=== PATIENT | male | born 1970 | race Caucasian/White ===

== ENCOUNTER 2016-06-29 10:24 | Emergency (ER) | payer SELFPAY ==
[2016-06-29 10:39] VITALS: BP 137/88; PULSE 120; RESP 18; TEMP 99
--- NOTE | 2016-06-29 11:06 | ED ---
General Adult HPI - General Chief complaint: Extremity Injury, Upper Stated complaint: ELBOW PAIN, POSS INFECTION Time Seen by Provider: 06/29/16 10:35 Source: patient, RN notes reviewed Mode of arrival: ambulatory Limitations: no limitations - History of Present Illness Initial comments: Is a 45-year-old male who presents to the emergency department with a septic olecranon bursitis on the right elbow. Patient states that this started a couple days ago and has gotten bigger and more red and warm. Patient denies any fever. Patient denies any drainage. Patient states about for 5 days ago he fell on stairs and cut open his elbow on the carpet. Patient denies any pain in the elbow joint patient denies any wrist pain or shoulder pain patient denies any other problems at this time. - Related Data Home Medications Medication Instructions Recorded Confirmed Lisinopril [Zestril] 20 mg PO DAILY 11/12/15 11/13/15 Multivitamin [Men's Multi-Vitamin] 1 each PO DAILY 11/12/15 11/13/15 Previous Rx's Medication Instructions Recorded Dicloxacillin [Dynapen] 500 mg PO Q6H 10 Days 06/29/16 Mupirocin 2% Oint [Bactroban 2% 1 applic TOPICAL TID 7 Days 06/29/16 Oint] Allergies Allergy/AdvReac Type Severity Reaction Status Date / Time No Known Allergies Allergy Verified 11/13/15 07:57 Review of Systems ROS Statement: Those systems with pertinent positive or pertinent negative responses have been documented in the HPI. ROS Other: All systems not noted in ROS Statement are negative. Past Medical History Past Medical History: Hypertension Additional Past Medical History / Comment(s): anemia, stool test positive History of Any Multi-Drug Resistant Organisms: None Reported Additional Past Surgical History / Comment(s): wisdom teeth removed Past Anesthesia/Blood Transfusion Reactions: No Reported Reaction Past Psychological History: No Psychological Hx Reported Smoking Status: Former smoker Past Alcohol Use History: None Reported Additional Past Alcohol Use History / Comment(s): quit smoking 10 yrs. ago, smoked for 10 yrs. Past Drug Use History: None Reported - Past Family History Mother Family Medical History: No Reported History General Exam - General Exam Comments Initial Comments: GENERAL Patient is well-developed and well-nourished. Patient is in mild distress. SKIN Patient has what appears to be a septic olecranon bursitis on the right elbow. There is warm and swollen and fluctuant. Patient has NEURO The patient is alert and oriented 3 PYSCH Patient has normal interpersonal interactions. MUSCULOSKELETAL Patient has full range of motion with that right elbow. Limitations: no limitations Course Vital Signs 06/29/16 10:35 Temperature 99 F Pulse Rate 120 H Respiratory 18 Rate Blood Pressure 137/88 O2 Sat by Pulse 97 Oximetry Procedures - Incision & Drainage Consent Obtained: verbal consent Time Out Performed?: Yes Site: other (Right elbow) Anesthetic Used: lidocaine 1% I&D Cleaning Method: Betadine Needle Aspiration Performed?: Yes Irrigation Performed?: No I&D Drainage Obtained: Pus, Blood Culture Obtained?: Yes Complications: pain Patient Tolerated Procedure: well Disposition Clinical Impression: Septic olecranon bursitis Disposition: HOME SELF-CARE Condition: Good Instructions: Elbow Bursitis (ED) Prescriptions: Dicloxacillin [Dynapen] 500 mg PO Q6H 10 Days Mupirocin 2% Oint [Bactroban 2% Oint] 1 applic TOPICAL TID 7 Days Referrals: Flo Gordillo MD [Primary Care Provider] - 1-2 days Time of Disposition: 11:04
== END 2016-06-29 11:24 | disposition home or self-care (01) ==
LOC: EC 10:24
DX: M71.121 Other infective bursitis, right elbow (principal); W10.9XXA Fall (on) (from) unspecified stairs and steps, initial encounter; I10 Essential (primary) hypertension; Z87.891 Personal history of nicotine dependence
CPT/HCPCS: 23931; 87070; 87077; 87186; 87205; 99283

== ENCOUNTER → 2018-09-14 | Outpatient (CLI) | payer BC ==
--- NOTE | 2018-09-14 13:48 | CT ---
EXAMINATION TYPE: CT ankle RT wo con DATE OF EXAM: 09/14/2018 COMPARISON: NONE HISTORY: Fracture lower right tibia. Fracture lateral malleolus. Trauma injury one week ago with know n fractures. TECHNIQUE: CT right ankle is performed without contrast. FINDINGS: Overlying cast material is present. There is oblique displaced fracture through the distal tibial diaphysis with lateral angulation roughly 27 degrees of distal fracture fragment. There is rou ghly 2 to 3 cm osseous overlap or impaction anteriorly laterally with roughly 1.0 cm anterior separat ion of distal fracture fragment. There is suspicion for linear nondisplaced fracture extension into t he ankle mortise sagittal image 31 which is confirmed on axial image 71 as fracture line extends to b oth medial and lateral margin of the distal tibial epiphysis. Posterior and medial malleoli show no a dditional fracture. There is comminuted displaced fracture through the lateral malleolus with medial displacement of dist al fracture fragment by roughly 1.0 cm. There is also slight anterior separation of the fracture frag ment. Tiny ossific fragments are noted axial image 68 at site of most prominent separation. Ankle mortise symmetry is satisfactory after presumed reduction and casting. Hindfoot and midfoot articulations are otherwise maintained. Normal sinus tarsi fat is seen. Lisfranc joints are maintained. Mild to moderate diffuse subcutaneous edema is noted. IMPRESSION: Comminuted displaced fractures distal tibial diaphysis and lateral malleolus as detailed above
== END | disposition home or self-care (01) ==
LOC: RADCTMAIN 13:16
PROVIDERS: ATTEND Physician Assistant
DX: S82.251A Displaced comminuted fracture of shaft of right tibia, initial encounter for closed fracture (principal); S82.61XA Displaced fracture of lateral malleolus of right fibula, initial encounter for closed fracture

== ENCOUNTER 2018-09-21 10:48 | Day surgery (SDC) | payer BC ==
[~2018-09-21 10:48] MED LIST: DEXAMETHASONE SOD PHOSPHATE 10 MG/ML 1 ML VIAL IV ONE; LIDOCAINE 1% 20 ML VIAL (10MG/ML) FOR IV START INTRADERMA PRN; ONDANSETRON 4 MG/2 ML VIAL IVP ONE; ceFAZolin IN SWFI 2 GM/20 ML SYRINGE IVP ONE; fentaNYL (PF) 50 MCG/ML 2 ML AMP IV PRN
[2018-09-21] MEDS: LACTATED RINGERS 1,000 ML IV SCH (11:16)
[2018-09-21 11:34] LABS: Basophils # (A) 0.1 k/uL (0-0.2); Basophils % (A) 1 %; Eosinophils # (A) 0.4 k/uL (0-0.7); Eosinophils % (A) 4 %; HCT 43.7 % (39.0-53.0); Lymphocytes # (A) 1.6 k/uL (1.0-4.8); Lymphocytes % (A) 15 %; MCH 31.5 pg (25.0-35.0); MCV 98.5 fL (80.0-100.0); Mean Platelet Volume 6.5; Monocytes # (A) 0.8 k/uL (0-1.0); Monocytes % (A) 8 %; Neutrophils # (A) 7.2 k/uL (1.3-7.7); Neutrophils % (A) 70 %; Platelet Count 673 k/uL (150-450); RBC 4.43 m/uL (4.30-5.90); RDW 12.5 % (11.5-15.5); WBC 10.2 k/uL (3.8-10.6)
[2018-09-21] MEDS ORDERED: MIDAZOLAM (PF) 2 MG/2 ML VIAL IVP ONE (11:42)
[2018-09-21] MEDS ORDERED: MIDAZOLAM 2 MG/2 ML VIAL ONE (13:02)
[2018-09-21] MEDS ORDERED: DEXAMETHASONE SOD PHOS (MDV) 100 MG/10 ML VIAL ONE (13:02)
[2018-09-21] MEDS ORDERED: SUCCINYLCHOLINE CHLORIDE 100 MG/5 ML SYR IV ONE (13:02)
[2018-09-21] MEDS ORDERED: ROCURONIUM BROMIDE 10 MG/ML 10 ML VIAL IV ONE (13:02)
[2018-09-21] MEDS ORDERED: NEOSTIGMINE 1 MG/ML 10 ML VIAL ONE (13:02)
[2018-09-21] MEDS ORDERED: PROPOFOL 10 MG/ML 20 ML VIAL IV ONE (13:02)
[2018-09-21] MEDS ORDERED: ePHEDrine SULFATE/0.9% NACL/PF 50 MG/5 ML SYRINGE IV ONE (13:02)
[2018-09-21] MEDS ORDERED: fentaNYL (PF) 50 MCG/ML 2 ML AMP ONE (13:02)
[2018-09-21] MEDS ORDERED: ROPIVACAINE 5 MG/ML 30 ML VIAL ONE (13:02)
[2018-09-21] MEDS ORDERED: GLYCOPYRROLATE 0.2 MG/ML 2 ML VIAL ONE (13:02)
[2018-09-21] MEDS ORDERED: LACTATED RINGERS 1,000 ML IV ONE ×2 (13:30→15:00)
[2018-09-21] MEDS ORDERED: HYDROmorphone 1 MG/ML 1 ML SYRINGE IVP PRN (17:29)
[2018-09-21] MEDS ORDERED: HYDROmorphone 0.5 MG/0.5 ML SYRINGE IVP PRN ×2 (17:29)
[2018-09-21] MEDS ORDERED: hydrOXYzine PAMOATE 25 MG CAP PO PRN (17:29)
[2018-09-21] MEDS ORDERED: HYDROcodone/APAP 5-325MG 1 EACH TAB PO PRN ×2 (17:29)
[2018-09-21] MEDS ORDERED: SENNOSIDES-DOCUSATE SODIUM 1 EACH TAB PO PRN (17:29)
[2018-09-21] MEDS ORDERED: ONDANSETRON 4 MG/2 ML VIAL IVP PRN (17:29)
--- NOTE | 2018-09-21 17:53 | P.OP ---
Date of Procedure: 09/21/18 Preoperative Diagnosis: 1. Right distal third tibia fracture 2. Right comminuted lateral malleolus fracture 3. Right posterior malleolus fracture, nondisplaced Postoperative Diagnosis: Same Procedure(s) Performed: 1. Open reduction and internal fixation right distal tibia fracture through an anterolateral approach 2. Open reduction internal fixation right posterior malleolus 3. Open reduction internal fixation right lateral malleolus 4. Application of short-leg splint by physician Anesthesia: CELY, regional Surgeon: Toby Perkins [employer] #1: Flako Vasquez Estimated Blood Loss (ml): 100 IV fluids (ml): 1,200 Pathology: none sent Condition: stable Disposition: PACU Indications for Procedure: The patient is a very pleasant 47-year-old male who sustained an isolated injury to his right leg week and a half ago. The patient is not sure what he did saying either hurt his leg while moving a safe or playing football. He states that after he removed his boot he had significant pain was unable to walk. He w ent to the ER at [facility] where x-rays showed a displaced tibia fracture. He was sent to our office and seen by Mikey Flores who placed him in a better splint, ordered a computed tomography scan, and referred him to my office. I met with the patient and his to discuss treatment. We discussed that it was extremely unusual for him to not remember how he broke his tibia and fibula. His x-ray and CT scans showed displaced fractures but no evidence of a pathologic lesion. We discussed the need for operative fixation. Due to the distal extent of the fracture I recommended open reduction and internal fixation with anterolateral plating versus a nail which would have minimal fixation distal to the fracture. We also discussed fixing the fibula and posterior malleolus. We discussed the potential risks and complications of surgery including but not limited to risk of anesthesia, superficial infection, deep infection, delayed wound healing, superficial wound necrosis, damage to local blood vessels or nerves, nonunion of the fracture site, malunion of the fracture site, systematic hardware, posterior Mckenna arthritis, DVT, PE, and inability to regain preinjury level of function, dissatisfaction with surgery, and possibly loss of life or limb. The patient and his understand all these are the most common complications other less common complications are possible. They provided their verbal and written consent to go forward with surgery. Description of Procedure: The patient was identified in preoperative holding and I reviewed the consent form with the patient and his . All of their questions were answered. The correct right leg was marked with my initials. I removed the splint to inspect the soft tissue. There was wrinkling of the skin. A popliteal and saphenous nerve block was placed by anesthesia. The patient was then brought back to the operating room. He was positioned on the OR table where a general anesthetic and preoperative antibiotics were given. A tourniquet was applied to the proximal aspect of the right leg. A bump was placed under the right buttock internally rotating the leg. The left leg secured to the table with foam and tape. A bone foam ramp was placed under the right leg to facilitate imaging. The right leg was then prepped and draped in the standard sterile fashion. Prior to starting surgery timeout was performed identifying the correct patient, operative extremity, and procedure. The patient's leg was then elevated, exsanguinated with an Esmarch bandage, and the tourniquet was inflated to 250 mmHg. I began by outlining incisions for an anterolateral Bohler incision to the distal tibia and a posterior lateral approach to the fibula. I made sure that there was at least 5 cm between both incisions to facilitate closure. I began by exposing the distal fibula through the posterior lateral approach. Skin incision was made with a scalpel and dissection was carried down carefully taking care to not undermine the skin edges. The fascia over the peroneal muscles was sharply incised in line with the skin incision and dissection was carried anteriorly to the peroneal muscles. The fibula was identified and the periosteum sharply elevated with a scalpel. The fracture was identified. There was a large butterfly fragment in addition to the primary oblique fracture line distally. The fracture ends sharply debrided and then carefully reduced by having an front office medical assistant pulled longitudinal traction while I keyed the fracture fragments in place and held them reduced with a [id number] reduction clamp. 2 nonlocking 2.0 mm screws were placed across the butterfly fragment into the proximal shaft holding the reduction nicely. A precontoured lateral distal fibular locking plate was placed over the lateral malleolus. A nonlocking 3.5 mm screw was placed just proximal to the fracture bringing the plate down to the bone. A second nonlocking 3.5 motor screws placed in the most proximal hole of the plate taking care to make sure the plate was centered on the fibula. Distally a nonlocking 2.7 mm screw was placed and one of the locking cluster holes to bring the plate down to bone. I then placed an additional 3 locking 2.7 mm screws in the distal fragment. The nonlocking 2.7 mm screw was exchanged for a final 2.7 mm locking screw. X-rays showed the fibula appeared to be out to length. Attention was then turned to the tibia. Skin incision was made over the previously made anterolateral marking. Dissection was carried down carefully to the subcutaneous tissue. A branch the superficial peroneal nerve was identified and carefully retracted. The extensor retinaculum was incised longitudinally in line with the skin incision. The anterior compartment tendons were carefully retracted off the distal tibia. Attention was then turned to reducing the tibia fracture. Stab incisions were made medially. Using a combination of longitudinal traction and rotation the fracture was aligned and then held with a [id number] reduction clamp. A 2.00 m K wire was placed obliquely across the fracture from medial to lateral holding the reduction. Fluoroscopy was brought in to verify that the tibia was reduced in both planes. A medium Wen elevator was then used to create a path along the anterolateral face of the tibia for the anterolateral plate. An anterolateral distal tibia plate was then slid along the anterolateral face of the tibia. It was pinned in place distally and proximally. I then placed 2 nonlocking 3.5 motor screws distally to bring the plate down to bone. I placed an additional 2 locking 3.5 mm screws and an oblique screw. Attention was then turned proximally. Stab incisions were made and 3 nonlocking 3.5 mm screws were placed percutaneously through the plate and into the tibia training the plate nicely down to bone. Final fluoroscopic images were taken showing anatomic reduction of the ankle mortise, a reasonably well reduced to be a fracture, and except oh position of all the hardware. All wounds were thoroughly irrigated. The deep fascial layer and retinaculum was closed with interrupted 0 Vicryl. The deep subcu was reapproximated using 2-0 Vicryl. The skin was closed using 3-0 nylon Algor modification of the Donati stitch. Brown quarter and stretchy Steri-Strips were placed. A sterile dressing consisting of Betadine soaked Adaptic, 4 x 4 and sterile web roll was placed. The drapes were taken down. A well-padded bulky Helton splint was placed with the ankle neutral. The patient was awoken from his anesthetic, transferred to a gurney, and brought to PACU in the procedure well. Charlene Vasquez PA-C was required as a skilled front office medical assistant for patient positioning, surgical exposure, retraction, reduction of hardware, placement of hardware, closure of wound, and application of splint. Plan: The patient is going to be admitted overnight for pain control, IV antibiotics, and a medical consult. His remain strictly nonweightbearing on his operative leg. We'll place consult for physical therapy. He can discharge home when his pain is controlled and he passes therapy.
[2018-09-21] MEDS ORDERED: NALOXONE 0.4 MG/ML 1 ML VIAL IV PRN (18:00)
[2018-09-21] MEDS: HYDROmorphone 0.5 MG/0.5 ML SYRINGE IVP PRN ×2 (18:10→18:25)
[2018-09-21 18:31] LABS: Basophils % (A) 0 %; Eosinophils % (A) 0 %; HCT 40.1 % (39.0-53.0); HGB 12.7 gm/dL (13.0-17.5); Lymphocytes # (A) 0.5 k/uL (1.0-4.8); Lymphocytes % (A) 5 %; MCH 31.4 pg (25.0-35.0); MCHC 31.7 g/dL (31.0-37.0); MCV 99.3 fL (80.0-100.0); Mean Platelet Volume 7.1; Monocytes # (A) 0.2 k/uL (0-1.0); Monocytes % (A) 2 %; Neutrophils # (A) 9.5 k/uL (1.3-7.7); Neutrophils % (A) 93 %; Platelet Count 608 k/uL (150-450); RBC 4.04 m/uL (4.30-5.90); WBC 10.2 k/uL (3.8-10.6)
[2018-09-21] MEDS: HYDROcodone/APAP 10-325MG 1 EACH TAB PO PRN ×2 (19:20→23:50)
[2018-09-21 19:30] VITALS: BMI 23.4
[2018-09-21] MEDS: ceFAZolin IN SWFI 2 GM/20 ML SYRINGE IVP SCH (23:51)
[2018-09-22] MEDS: LACTATED RINGERS 1,000 ML IV SCH ×3 (04:37→04:40)
[2018-09-22] MEDS: HYDROcodone/APAP 10-325MG 1 EACH TAB PO PRN ×2 (04:37→09:41)
[2018-09-22 07:51] VITALS: BP 101/65; PULSE 91; RESP 18; TEMP 98.3
--- NOTE | 2018-09-22 08:59 | P.DS ---
Providers Expected date of discharge: 09/22/18 Attending physician: Toby Perkins Consults: 09/21/18 17:29 Consult Physician Routine Consulting Provider: Flo Gordillo Consult Reason/Comments: medical management Do you want consulting provider notified?: Yes [facility] Course: This is a 47-year-old male who sustained an injury to the right leg approximate ly 10 days ago, but did not recall how this happened. X-rays from the emergency room at [facility] revealed a displaced fracture of the right tibia. Patient followed up with Dr. Perkins as an outpatient and underwent CTscan which showed displaced fractures of the right tibia and fibula. After discussion and consideration patient elects to proceed with ORIF of the right distal tibia, right posterior malleolus and right lateral malleolus. Patient is seen preoperatively by Dr. Perkins. Patient is admitted to [facility] on 09/21/2018 for ORIF of the right distal tibia, right posterior malleolus and right lateral malleolus. The procedures performed without complication or sequelae. The patient is doing well postoperatively. Labs and vital signs are stable on day of discharge. On day of discharge patient's splint is clean, dry and intact. Patient is able to wiggle the toes of the right foot. Capillary refill is normal at less than 2 seconds. There is no drainage noted at this time. Neurovascular status to the right lower extremity is intact. Patient is discharged home in good condition. Please see med rec for accurate list of home medications. Plan - Discharge Summary Discharge Rx Participant: No New Discharge Prescriptions: New Aspirin 325 mg PO DAILY #14 tab Docusate [Colace] 100 mg PO BID #60 capsule HYDROcodone/APAP 10-325MG [[place] 10-325] 1 tab PO Q4-6H PRN 7 Days #40 tab PRN Reason: Pain No Action Ibuprofen [Motrin] 200 - 400 mg PO Q6HR PRN PRN Reason: PAIN/FEVER HYDROcodone/APAP 10-325MG [[place] 10-325] 1 tab PO Q4H PRN PRN Reason: Pain Lisinopril-Hctz 20-25 mg [Zestoretic 20-25] 1 tab PO QAM José/D3/Mag11/Zinc/Roll Handler/[place]ec[place]/Bor [Caltrate 600+D Plus Tablet] 1 tab PO DAILY Discharge Medication List Ibuprofen [Motrin] 200 - 400 mg PO Q6HR PRN 06/29/16 [History] José/D3/Mag11/Zinc/Roll Handler/[place]/Bor [Caltrate 600+D Plus Tablet] 1 tab PO DAILY 09/19/18 [History] HYDROcodone/APAP 10-325MG [[place] 10-325] 1 tab PO Q4H PRN 09/19/18 [History] Lisinopril-Hctz 20-25 mg [Zestoretic 20-25] 1 tab PO QAM 09/19/18 [History] Aspirin 325 mg PO DAILY #14 tab 09/21/18 [Rx] Docusate [Colace] 100 mg PO BID #60 capsule 09/21/18 [Rx] HYDROcodone/APAP 10-325MG [[place] 10-325] 1 tab PO Q4-6H PRN 7 Days #40 tab 09/21/18 [Rx] Follow up Appointment(s)/Referral(s): Toby Perkins MD [Medical Doctor] - 2 Weeks Activity/Diet/Wound Care/Special Instructions: -Strict non-weight bearing on your operative leg. Do not remove your splint; Keep splint clean, dry, and intact -Use crutches, knee scooter, or a walker to ambulate after surgery. -Elevate and ice operative leg to help reduce swelling and control pain. -Take pain medications as prescribed. Take Colace as a stool softener. Take aspirin as prescribed for blood clot prevention. -Follow-up appointment with Dr. Perkins in the office in 2 weeks. -Call the office with any questions or concerns, Discharge Disposition: HOME SELF-CARE
[2018-09-22] MEDS ORDERED: ENOXAPARIN 40 MG/0.4 ML SYRINGE SQ SCH (09:00)
[2018-09-22] MEDS: ceFAZolin IN SWFI 2 GM/20 ML SYRINGE IVP SCH (11:05)
--- NOTE | 2018-09-22 11:52 | P.ONQ ---
Anesthesiology Proc Note - PNB - Peripheral Nerve Block Performed Right Popliteal Single Time Out Performed: Yes Procedure Start Time: 11:42 Procedure Stop Time: 11:48 Indication: Acute Post-Operative Pain, Requested by physician Sedation Type: Sedate with meaningful contact maintained Preparation: Sterile Prep Position: Supine Needle Size: 50mm (2") Needle Gauge: 21 Technique: Ultrasound (ropi .5% 30cc plus dexamethasone 4mg)
--- NOTE | 2018-09-22 13:00 | XR ---
EXAMINATION TYPE: XR ankle complete RT, FL guidance operating room DATE OF EXAM: 09/21/2018 CLINICAL HISTORY: Right ankle open reduction internal fixation TECHNIQUE: Fluoroscopy. COMPARISON: None. FINDINGS: Fluoroscopic guidance was provided during procedure performed by Dr. Perkins. A total of 8.57 seconds seconds of fluoroscopic time was utilized during the procedure and 6 spot images was ac quired during a right ankle open reduction internal fixation. IMPRESSION: As Above.
--- NOTE | 2018-09-22 13:40 | P.PN ---
Progress Note - Text Patient was discharged less then 24 hour from consult time No active medical problems He was not seen by our service during this admission Cancel consult No billing
== END 2018-09-22 12:18 | disposition home or self-care (01) ==
LOC: OR 10:48 → 4SSUR 18:06 → OR 09-22 12:18
PROVIDERS: ATTEND Orthopaedic Surgery
DX: S82.391A Other fracture of lower end of right tibia, initial encounter for closed fracture (principal); S82.844A Nondisplaced bimalleolar fracture of right lower leg, initial encounter for closed fracture; I10 Essential (primary) hypertension; Z79.1 Long term (current) use of non-steroidal anti-inflammatories (NSAID)
CPT/HCPCS: 97161; 64450; 84132; 85025; 82306; 73610; 27827; 27814; C1713; J2250 ×2; J1100 ×2; J2710; J2405; J1650; J3010; J2795; J0330; J2704; J1170; J0690 ×2

== ENCOUNTER 2024-08-06 17:00 | Inpatient (IN) | payer BC ==
[2024-08-06 18:19] LABS: Basophils % (A) 0 %; Eosinophils # (A) 0.2 k/uL (0-0.7); Eosinophils % (A) 1 %; HCT 41.7 % (39.0-53.0); HGB 13.4 gm/dL (13.0-17.5); Lymphocytes # (A) 1.1 k/uL (1.0-4.8); Lymphocytes % (A) 5 %; MCH 32.1 pg (25.0-35.0); MCV 100.1 fL (80.0-100.0); Macrocytosis Slight; Mean Platelet Volume 7.1; Monocytes # (A) 0.7 k/uL (0-1.0); Monocytes % (A) 3 %; Neutrophils # (A) 19.8 k/uL (1.3-7.7); Neutrophils % (A) 90 %; Platelet Count 574 k/uL (150-450); RBC 4.17 m/uL (4.30-5.90); RDW 14.1 % (11.5-15.5)
[2024-08-06 18:30] LABS: ALT 11 U/L (4-49); AST 21 U/L (17-59); African American GFR (CKD) >90 (>60 ml/min/1.73 sqM); Albumin 3.8 g/dL (3.5-5.0); Alkaline Phosphatase 81 U/L (38-126); Amylase 33 U/L (30-110); Anion Gap 10 mmol/L; Blood Urea Nitrogen 11 mg/dL (9-20); Calcium 9.3 mg/dL (8.4-10.2); Carbon Dioxide 23 mmol/L (22-30); Chloride 98 mmol/L (98-107); Glucose 118 mg/dL (74-99); Lipase 50 U/L (23-300); Non-African American GFR(CKD) >90 (>60 ml/min/1.73 sqM); Potassium 4.6 mmol/L (3.5-5.1); Sodium 131 mmol/L (137-145); Total Bilirubin 0.8 mg/dL (0.2-1.3); Total Protein 7.4 g/dL (6.3-8.2)
--- NOTE | 2024-08-06 18:33 | ED ---
General Adult HPI - General Chief complaint: Abdominal Pain Stated complaint: Abd pain,Fever Time Seen by Provider: 08/06/24 18:16 Source: patient, RN notes reviewed Mode of arrival: ambulatory Limitations: no limitations - History of Present Illness Initial comments: Patient is a 53-year-old male present to the emergency department with concerns with abdominal pain. Onset of symptoms was 4 days ago. Symptoms seem to improve and then got worse last night. Patient has had some intermittent fevers. Patient has had some nausea and mild constipation. No dysuria. No vomiting. No history of similar symptoms previously. Discomfort is mostly lower abdomen. Discomfort started more on the left however is more on the right lower. - Related Data Home Medications Medication Instructions Recorded Confirmed Lisinopril-Hctz 20-25 mg 1 tab PO DAILY 09/19/18 08/06/24 [Zestoretic 20-25] Ibuprofen [Motrin] 800 mg PO TID PRN 08/06/24 08/06/24 Allergies Allergy/AdvReac Type Severity Reaction Status Date / Time No Known Allergies Allergy Verified 08/06/24 19:52 Review of Systems ROS Statement: Those systems with pertinent positive or pertinent negative responses have been documented in the HPI. ROS Other: All systems not noted in ROS Statement are negative. Constitutional: Reports: as per HPI, fever Eyes: Denies: eye pain ENT: Denies: ear pain Respiratory: Denies: dyspnea Cardiovascular: Denies: chest pain Endocrine: Denies: fatigue Gastrointestinal: Reports: as per HPI, abdominal pain, nausea Genitourinary: Denies: urgency, dysuria Musculoskeletal: Denies: back pain Past Medical History Past Medical History: Hypertension Additional Past Medical History / Comment(s): fx rt ankle,hx anemia,colon polyps History of Any Multi-Drug Resistant Organisms: None Reported Additional Past Surgical History / Comment(s): wisdom teeth removed,dental work Past Anesthesia/Blood Transfusion Reactions: No Reported Reaction Additional Past Anesthesia/Blood Transfusion Reaction / Comment(s): never has had general anesthesia or blood transfusion Past Psychological History: No Psychological Hx Reported Smoking Status: Former smoker Past Alcohol Use History: None Reported Past Drug Use History: None Reported - Past Family History Mother Family Medical History: No Reported History General Exam Limitations: no limitations General appearance: alert, in no apparent distress Head exam: Present: normocephalic Eye exam: Present: normal appearance Neck exam: Present: normal inspection Respiratory exam: Present: normal lung sounds bilaterally Cardiovascular Exam: Present: tachycardia GI/Abdominal exam: Present: soft, tenderness (Lower abdomen, moderate), guarding, normal bowel sounds. Absent: distended, rebound, rigid, pulsatile mass Extremities exam: Present: normal inspection Neurological exam: Present: alert Psychiatric exam: Present: normal affect, normal mood Skin exam: Present: normal color Course Vital Signs 08/06/24 08/06/24 08/06/24 17:12 18:15 19:33 Temperature 100 F H 100.3 F H 100.0 F H Pulse Rate 133 H 120 H 105 H Respiratory 20 18 20 Rate Blood Pressure 120/84 130/85 115/81 O2 Sat by Pulse 99 99 96 Oximetry Medical Decision Making - Medical Decision Making Concern for potential sepsis at 1830. Blood culture, lactic acid and IV antibiotics have all been ordered. IV fluids ordered. Was pt. sent in by a medical professional or institution (, PA, SENIOR PRODUCER, urgent care, hospital, or longterm...) When possible be specific @ -No Did you speak to anyone other than the patient for history (EMS, parent, family, police, friend...)? What history was obtained from this source @ -No Did you review nursing and triage notes (agree or disagree)? Why? @ -I reviewed and agree with nursing and triage notes Were old charts reviewed (outside hosp., previous admission, EMS record, old EKG, old radiological studies, urgent care reports/EKG's, longterm records)? Report findings @ -No old charts were reviewed Differential Diagnosis (chest pain, altered mental status, abdominal pain women, abdominal pain men, vaginal bleeding, weakness, fever, dyspnea, syncope, headache, dizziness, GI bleed, back pain, seizure, CVA, palpatations, mental health, musculoskeletal)? @ -Differential Abdominal Pain Men: Appendicitis, cholecystitis, diverticulosis, ischemic bowel, pancreatitis, hepatitis, UTI, gastroenteritis, AAA, incarcerated hernia, bowel obstruction, constipation, inflammatory bowel, hepatitis, peptic ulcer disease, splenic infarction, perforated viscus, testicular torsion, this is not meant to be an all-inclusive list EKG interpreted by me (3pts min.). @ -As above X-rays interpreted by me (1pt min.). @ -None done CT interpreted by me (1pt min.). @ -CT scan with evidence of colitis with perforation and abscess. U/S interpreted by me (1pt. min.). @ -None done What testing was considered but not performed or refused? (CT, X-rays, U/S, labs)? Why? @ -None What meds were considered but not given or refused? Why? @ -None Did you discuss the management of the patient with other professionals (professionals i.e. Dr., PA, SENIOR PRODUCER, lab, RT, psych nurse, social services director, wool supplier, teacher, building drafting officer, continuous pillowcase cutter)? Give summary @ -Case was discussed with Dr. Mahajan who did come evaluate patient will take to the OR Was smoking cessation discussed for >3mins.? @ -No Was critical care preformed (if so, how long)? @ -No Were there social determinants of health that impacted care today? How? (Homelessness, low income, unemployed, alcoholism, drug addiction, transportation, low edu. Level, literacy, decrease access to med. care, care home, rehab)? @ -No Was there de-escalation of care discussed even if they declined (Discuss DNR or withdrawal of care, Hospice)? DNR status @ -No What co-morbidities impacted this encounter? (DM, HTN, Smoking, COPD, CAD, Cancer, CVA, ARF, Chemo, Hep., AIDS, mental health diagnosis, sleep apnea, morbid obesity)? @ -None Was patient admitted / discharged? Hospital course, mention meds given and route, prescriptions, significant lab abnormalities, going to OR and other pertinent info. @ -Patient presents with abdominal pain, high white count and fever. CT scan concerning for perforation. Patient to go to the OR. Patient reevaluated. Patient and family updated. Undiagnosed new problem with uncertain prognosis? @ -No Drug Therapy requiring intensive monitoring for toxicity (Heparin, Nitro, Insulin, Cardizem)? @ -No Were any procedures done? @ -No Diagnosis/symptom? @ -Perforated colon Acute, or Chronic, or Acute on Chronic? @ -Acute Uncomplicated (without systemic symptoms) or Complicated (systemic symptoms)? @ -Default Side effects of treatment? @ -No Exacerbation, Progression, or Severe Exacerbation? @ -No Poses a threat to life or bodily function? How? (Chest pain, [place], [place], pneumonia, PE, COPD, DKA, ARF, appy, cholecystitis, CVA, Diverticulitis, Homicidal, Suicidal, threat to staff... and all critical care pts) @ -Threat to bowel function - Lab Data Result diagrams: 08/06/24 18:05 08/06/24 18:05 Lab Results 08/06/24 08/06/24 08/06/24 Range/Units 18:05 18:05 18:05 WBC 22.0 H (3.8-10.6) k/uL RBC 4.17 L (4.30-5.90) m/uL Hgb 13.4 (13.0-17.5) gm/dL Hct 41.7 (39.0-53.0) % MCV 100.1 H (80.0-100.0) fL MCH 32.1 (25.0-35.0) pg MCHC 32.0 (31.0-37.0) g/dL RDW 14.1 (11.5-15.5) % Plt Count 574 H (150-450) k/uL MPV 7.1 Neutrophils % 90 % Lymphocytes % 5 % Monocytes % 3 % Eosinophils % 1 % Basophils % 0 % Neutrophils # 19.8 H (1.3-7.7) k/uL Lymphocytes # 1.1 (1.0-4.8) k/uL Monocytes # 0.7 (0-1.0) k/uL Eosinophils # 0.2 (0-0.7) k/uL Basophils # 0.0 (0-0.2) k/uL Macrocytosis Slight APTT (22.0-30.0) sec Sodium 131 L (137-145) mmol/L Potassium 4.6 (3.5-5.1) mmol/L Chloride 98 (98-107) mmol/L Carbon Dioxide 23 (22-30) mmol/L Anion Gap 10 mmol/L BUN 11 (9-20) mg/dL Creatinine 0.76 (0.66-1.25) mg/dL Est GFR (CKD-EPI)AfAm >90 (>60 ml/min/1.73 sqM) Est GFR (CKD-EPI)NonAf >90 (>60 ml/min/1.73 sqM) Glucose 118 H (74-99) mg/dL Plasma Lactic Acid Eliceo 1.4 (0.7-2.0) mmol/L Calcium 9.3 (8.4-10.2) mg/dL Total Bilirubin 0.8 (0.2-1.3) mg/dL AST 21 (17-59) U/L ALT 11 (4-49) U/L Alkaline Phosphatase 81 (38-126) U/L Total Protein 7.4 (6.3-8.2) g/dL Albumin 3.8 (3.5-5.0) g/dL Amylase 33 (30-110) U/L Lipase 50 (23-300) U/L 08/06/24 Range/Units 18:05 WBC (3.8-10.6) k/uL RBC (4.30-5.90) m/uL Hgb (13.0-17.5) gm/dL Hct (39.0-53.0) % MCV (80.0-100.0) fL MCH (25.0-35.0) pg MCHC (31.0-37.0) g/dL RDW (11.5-15.5) % Plt Count (150-450) k/uL MPV Neutrophils % % Lymphocytes % % Monocytes % % Eosinophils % % Basophils % % Neutrophils # (1.3-7.7) k/uL Lymphocytes # (1.0-4.8) k/uL Monocytes # (0-1.0) k/uL Eosinophils # (0-0.7) k/uL Basophils # (0-0.2) k/uL Macrocytosis APTT 27.2 (22.0-30.0) sec Sodium (137-145) mmol/L Potassium (3.5-5.1) mmol/L Chloride (98-107) mmol/L Carbon Dioxide (22-30) mmol/L Anion Gap mmol/L BUN (9-20) mg/dL Creatinine (0.66-1.25) mg/dL Est GFR (CKD-EPI)AfAm (>60 ml/min/1.73 sqM) Est GFR (CKD-EPI)NonAf (>60 ml/min/1.73 sqM) Glucose (74-99) mg/dL Plasma Lactic Acid Eliceo (0.7-2.0) mmol/L Calcium (8.4-10.2) mg/dL Total Bilirubin (0.2-1.3) mg/dL AST (17-59) U/L ALT (4-49) U/L Alkaline Phosphatase (38-126) U/L Total Protein (6.3-8.2) g/dL Albumin (3.5-5.0) g/dL Amylase (30-110) U/L Lipase (23-300) U/L Disposition Clinical Impression: Perforated sigmoid colon Disposition: ADMITTED IP TO THIS HOSP Condition: Serious Is patient prescribed a controlled substance at d/c from ED?: No Referrals: Robby Dave MD [Primary Care Provider] - 1-2 days Time of Disposition: 20:19
[2024-08-06] MEDS: MORPHINE SULFATE 4 MG/ML SYRINGE IVP STA (18:40)
[2024-08-06] MEDS: PIPERACILLIN-TAZOBACTAM 3.375 GM in SODIUM CHLORIDE 0.9% 100 ML IVPB SCH (18:43)
[2024-08-06] MEDS: LACTATED RINGERS 1,000 ML IV STA (18:53)
--- NOTE | 2024-08-06 20:00 | CT ---
EXAMINATION TYPE: CT abdomen pelvis w con DATE OF EXAM: 08/06/2024 7:13 PM COMPARISON: None CLINICAL INDICATION: Male, 53 years old with history of abp; pt c,o of bilat lower abd pain onset mon day, denies any n/v, reports fevers TECHNIQUE: Axial CT abdomen pelvis w con;Sagittal and coronal reformats were created on a separate w orkstation. Contrast used:100ml mL of Isovue 300 with IV Contrast, (none if empty) Oral contrast used: without Oral Contrast (none if empty) CT DLP: 610.1 mGycm, Automated exposure control for dose reduction was used. FINDINGS: LOWER CHEST: Unremarkable ABDOMEN LIVER: Unremarkable GALLBLADDER AND BILE DUCTS: Unremarkable. PANCREAS: Unremarkable. SPLEEN: Unremarkable. ADRENAL GLANDS: Unremarkable. KIDNEYS AND URETERS: No evidence of hydronephrosis or renal calculus. The ureters are unremarkable. PELVIS BLADDER: Mild circumferential wall thickening the bladder measuring up to 10 mm. The bladder extends superiorly towards the area of wall thickening of the colon. REPRODUCTIVE: Unremarkable. ABDOMEN & PELVIS STOMACH AND BOWEL: No evidence of bowel obstruction. Appendix is dilated up to 10 mm. Scattered colon ic diverticula. Masslike area of wall thickening of the sigmoid colon series 202 image 39 wall measur ing up to 21 mm. The urinary bladder extends up towards this region. There is free fluid/abscess form ation measuring 63 x 24 mm in the left lower quadrant series 201 image 60. Few scattered colonic dive rticula. PERITONEUM/RETROPERITONEUM: No evidence of pneumoperitoneum. Trace free fluid throughout the pelvis. VASCULATURE: Moderate atherosclerotic calcifications are present throughout the abdominal aorta and i ts branches. No evidence of aortic aneurysm. MUSCULOSKELETAL: No acute osseous abnormalities. Moderate disc degeneration changes are present throu ghout the thoracolumbar spine. LYMPH NODES: No gross evidence for lymphadenopathy. SOFT TISSUE/ABDOMINAL WALL: Unremarkable IMPRESSION: 1. Masslike area of wall thickening of the sigmoid colon with free peritoneal fluid compatible with abscess. Findings could represent perforated mass versus perforated colitis with abscess formation. F urther workup and surgical consultation recommended. 2. Circumferential wall thickening up to 10 mm. Correlate with urinalysis for cystitis partially sec ondary to 3. Trace ascites in the abdomen 4. The appendix is dilated with mild inflammation changes correlate for appendicitis. Findings communicated to Baldomero Helton on 08/06/2024 7:[address] Alfredito Montelongo. [facility], , 08/06/2024 7:57 PM
[2024-08-06] MEDS: ACETAMINOPHEN IV (For NPO) 750 MG in EMPTY BAG 1 BAG IVPB STA (20:03)
[2024-08-06] MEDS ORDERED: NALOXONE 0.4 MG/ML 1 ML VIAL IV PRN (20:20)
[2024-08-06] MEDS ORDERED: MORPHINE SULFATE 4 MG/ML SYRINGE IV PRN (20:20)
[2024-08-06] MEDS ORDERED: ONDANSETRON 4 MG/2 ML VIAL IVP PRN (20:20)
--- NOTE | 2024-08-06 20:45 | P.GSHP ---
History of Present Illness H&P Date: 08/06/24 Patient is a 53-year-old male presenting to the [facility] emergency department with abdominal pain. Onset of symptoms was 4 days ago. Symptoms seem to improved and then got worse last night. Patient has had some intermittent fevers. Patient has had some nausea and mild constipation. No dysuria. No vomiting. No history of similar symptoms previously. Discomfort is mostly lower abdomen. He denies surgical history. He had a colonoscopy 8 years ago for rectal bleeding and had 3 polyps removed per the patient. He has not had a colonoscopy since that time. CT-AP shows a perforated sigmoid colon with associated abscess and free fluid. ROS Statement: Those systems with pertinent positive or pertinent negative responses have been documented in the HPI. ROS Other: All systems not noted in ROS Statement are negative. Constitutional: Reports: as per HPI, fever Eyes: Denies: eye pain ENT: Denies: ear pain Respiratory: Denies: dyspnea Cardiovascular: Denies: chest pain Endocrine: Denies: fatigue Gastrointestinal: Reports: as per HPI, abdominal pain, nausea Genitourinary: Denies: urgency, dysuria Musculoskeletal: Denies: back pain Past Medical History Past Medical History: Hypertension Additional Past Medical History / Comment(s): fx rt ankle,hx anemia,colon polyps History of Any Multi-Drug Resistant Organisms: None Reported Additional Past Surgical History / Comment(s): wisdom teeth removed,dental work Past Anesthesia/Blood Transfusion Reactions: No Reported Reaction Additional Past Anesthesia/Blood Transfusion Reaction / Comment(s): never has had general anesthesia or blood transfusion Past Psychological History: No Psychological Hx Reported Smoking Status: Former smoker Past Alcohol Use History: None Reported Past Drug Use History: None Reported - Past Family History Mother Family Medical History: No Reported History General Exam Limitations: no limitations General appearance: alert, in no apparent distress Head exam: Present: normocephalic Eye exam: Present: normal appearance Neck exam: Present: normal inspection Respiratory exam: Present: normal lung sounds bilaterally Cardiovascular Exam: Present: tachycardia GI/Abdominal exam: Present: soft, tenderness (Lower abdomen, moderate), guarding, normal bowel sounds. Absent: distended, rebound, rigid, pulsatile mass Extremities exam: Present: normal inspection Neurological exam: Present: alert Psychiatric exam: Present: normal affect, normal mood Skin exam: Present: normal color 53 year old male with perforated sigmoid colon with associated abscess and free fluid -OR for Exploratory Laparotomy -Zosyn -IV fluids -NPO -Medicine consult for medical management [place] Wood [facility] [phone] Past Medical History Past Medical History: Hypertension Additional Past Medical History / Comment(s): fx rt ankle,hx anemia,colon polyps History of Any Multi-Drug Resistant Organisms: None Reported Additional Past Surgical History / Comment(s): wisdom teeth removed,dental work Past Anesthesia/Blood Transfusion Reactions: No Reported Reaction Additional Past Anesthesia/Blood Transfusion Reaction / Comment(s): never has had general anesthesia or blood transfusion Past Psychological History: No Psychological Hx Reported Smoking Status: Former smoker Past Alcohol Use History: None Reported Past Drug Use History: None Reported - Past Family History Mother Family Medical History: No Reported History Medications and Allergies Home Medications Medication Instructions Recorded Confirmed Type Lisinopril-Hctz 20-25 mg 1 tab PO DAILY 09/19/18 08/06/24 History [Zestoretic 20-25] Ibuprofen [Motrin] 800 mg PO TID PRN 08/06/24 08/06/24 History Allergies Allergy/AdvReac Type Severity Reaction Status Date / Time No Known Allergies Allergy Verified 08/06/24 19:52 Surgical - Exam Vital Signs Temp Pulse Resp BP Pulse Ox 100 F H 133 H 20 120/84 99 08/06/24 17:12 08/06/24 17:12 08/06/24 17:12 08/06/24 17:12 08/06/24 17:12 Results - Labs 08/06/24 18:05 08/06/24 18:05 Abnormal Lab Results - Last 24 Hours (Table) 08/06/24 08/06/24 Range/Units 18:05 18:05 WBC 22.0 H (3.8-10.6) k/uL RBC 4.17 L (4.30-5.90) m/uL MCV 100.1 H (80.0-100.0) fL Plt Count 574 H (150-450) k/uL Neutrophils # 19.8 H (1.3-7.7) k/uL Sodium 131 L (137-145) mmol/L Glucose 118 H (74-99) mg/dL Diabetes panel 08/06/24 Range/Units 18:05 Sodium 131 L (137-145) mmol/L Potassium 4.6 (3.5-5.1) mmol/L Chloride 98 (98-107) mmol/L Carbon Dioxide 23 (22-30) mmol/L BUN 11 (9-20) mg/dL Creatinine 0.76 (0.66-1.25) mg/dL Glucose 118 H (74-99) mg/dL Calcium 9.3 (8.4-10.2) mg/dL AST 21 (17-59) U/L ALT 11 (4-49) U/L Alkaline Phosphatase 81 (38-126) U/L Total Protein 7.4 (6.3-8.2) g/dL Albumin 3.8 (3.5-5.0) g/dL Calcium panel 08/06/24 Range/Units 18:05 Calcium 9.3 (8.4-10.2) mg/dL Albumin 3.8 (3.5-5.0) g/dL Pituitary panel 08/06/24 Range/Units 18:05 Sodium 131 L (137-145) mmol/L Potassium 4.6 (3.5-5.1) mmol/L Chloride 98 (98-107) mmol/L Carbon Dioxide 23 (22-30) mmol/L BUN 11 (9-20) mg/dL Creatinine 0.76 (0.66-1.25) mg/dL Glucose 118 H (74-99) mg/dL Calcium 9.3 (8.4-10.2) mg/dL Adrenal panel 08/06/24 Range/Units 18:05 Sodium 131 L (137-145) mmol/L Potassium 4.6 (3.5-5.1) mmol/L Chloride 98 (98-107) mmol/L Carbon Dioxide 23 (22-30) mmol/L BUN 11 (9-20) mg/dL Creatinine 0.76 (0.66-1.25) mg/dL Glucose 118 H (74-99) mg/dL Calcium 9.3 (8.4-10.2) mg/dL Total Bilirubin 0.8 (0.2-1.3) mg/dL AST 21 (17-59) U/L ALT 11 (4-49) U/L Alkaline Phosphatase 81 (38-126) U/L Total Protein 7.4 (6.3-8.2) g/dL Albumin 3.8 (3.5-5.0) g/dL
[2024-08-06] MEDS ORDERED: SUCCINYLCHOLINE CHLORIDE 200 MG/10 ML VIAL IV ONE (21:08)
[2024-08-06] MEDS ORDERED: GLYCOPYRROLATE 0.2 MG/ML 2 ML VIAL ONE (21:08)
[2024-08-06] MEDS: LACTATED RINGERS 1,000 ML IV ONE ×2 (21:08→22:03)
[2024-08-06] MEDS ORDERED: fentaNYL (PF) 50 MCG/ML 2 ML AMP ONE (21:08)
[2024-08-06] MEDS ORDERED: NEOSTIGMINE 1 MG/ML 10 ML VIAL ONE (21:08)
[2024-08-06] MEDS ORDERED: LIDOCAINE 1% INJ 10MG/ML (20 ML MDV) ONE (21:08)
[2024-08-06] MEDS ORDERED: ROCURONIUM 10 MG/ML (5 ML VIAL) IV ONE (21:08)
[2024-08-06] MEDS ORDERED: MIDAZOLAM 2 MG/2 ML VIAL ONE (21:08)
[2024-08-06] MEDS ORDERED: HYDROmorphone (PF) 1 MG/ML ONE (21:08)
[2024-08-06] MEDS ORDERED: PROPOFOL 10 MG/ML 20 ML VIAL IV ONE (21:08)
--- NOTE | 2024-08-06 23:27 | P.OP ---
Date of Procedure: 08/06/24 Preoperative Diagnosis: Perforated Sigmoid Colon Postoperative Diagnosis: Perforated Sigmoid Colon with Abscess Procedure(s) Performed: 1. Exploratory Laparotomy 2. Sigmoid Colon Resection with End Colostomy 3. Abdominal Washout Anesthesia: CELY Surgeon: [place] Wood Estimated Blood Loss (ml): 100 Pathology: other (1. Sigmoid Colon 2. Abscess Culture) Condition: stable Disposition: PACU Description of Procedure: The patient was taken to the operating suite and placed in the supine position. Anesthesia was given and endotracheal intubation was performed. The abdomen was prepped and draped in usual sterile fashion. A timeout was performed with everyone in agreement. A #10 blade was used to make a midline incision and bovie electrocautery was used to dissect through the subcutaneous tissue and into the abdominal cavity safely. Once in the abdomen safely, there was purulent fluid appreciated in the pelvis which was cultures. There was a firm perforated mass in the sigmoid colon which was adhered to the abdominal wall and the pelvic side wall. Bovie electrocautery was used to safely take the mass off of the side wall and abdominal wall. There were more pockets of abscess cavity which were appreciated during this dissection. Once the perforated mass was free from the abdominal wall and pelvic side wall, a mesenteric window was made both proximally and distally to the mass. An endo INNA 60 mm purple staple load was used to divide both the distal sigmoid colon and the rectum. The mesentery associated with the sigmoid colon mass was taken down with a ligasure device. Once the specimen was free it was passed off. The white line of Toltd and the lateral attachements of the sigmoid colon were then taken down. Some of the mesentery of the sigmoid colon was also taken down with a ligasure device. Once I was satisfied with the length of the sigmoid colon, a circular incision was made on the abdominal wall for the colostomy. A bovie was used to dissect through the subcutaneous tissue and the peritoneal cavity was entered. The sigmoid colon was then externalized for the colostomy. The abdomen was then copiously irrigated and there was no active bleeding noted. A #19 F MELITA was placed in the pelvis and sutured in place with a #2-0 Nylon suture. The fascia was then closed with two #0 Looped Prolene sutures ran in opposite directions. Skin beatriz were used to approximate the skin. The colostomy was then matured with 2-0 Vicryl Suture. At this point, the surgery was complete and a sterile dressing was applied. The patient was extubated at the end of surgery. The patient tolerated the procedure well and was sent to the PACU in stable condition.
[2024-08-07] MEDS: HYDROmorphone 0.5 MG/0.5 ML SYRINGE IVP PRN
[2024-08-07] MEDS: SODIUM CHLORIDE 0.9% 1,000 ML IV SCH (02:28)
[2024-08-07] MEDS: KETOROLAC 15 MG/ML 1 ML VIAL IVP SCH (02:29)
[2024-08-07 03:02] LABS: Appearance,Urine Clear (Clear); Bacteria,Urine Rare /hpf; Bilirubin,Urine Negative (Negative); Blood,Urine Negative (Negative); Budding Yeast,Urine Rare /hpf; Color,Urine Yellow; Glucose,Urine (UA) Negative (Negative); Ketones,Urine Negative (Negative); Leukocyte Esterase,Urine Small (Negative); Mucus,Urine Rare /hpf; Nitrite,Urine Positive (Negative); PH, Urine 6.5 (5.0-8.0); Protein,Urine Trace (Negative); RBC,Urine 15 /hpf (0-5); Squamous Epithelial Cell,Urine 1 /hpf (0-4); Urobilinogen,Urine <2.0 mg/dL (<2.0); WBC,Urine 30 /hpf (0-5)
[2024-08-07] MEDS: HYDROmorphone 1 MG/ML 1 ML SYRINGE IVP PRN ×2 (03:05→14:51)
[2024-08-07 03:07] LABS: Specific Gravity,Urine >1.050 (1.001-1.035)
[2024-08-07 08:32] LABS: ALT 8 U/L (10-49); AST 17 U/L (14-35); Albumin/Globulin Ratio 1.11 Ratio (1.60-3.17); Alkaline Phosphatase 64 U/L (41-126); BUN/Creat Ratio 12.25 Ratio (12.00-20.00); Blood Urea Nitrogen 9.8 mg/dL (9.0-27.0); Calcium 8.4 mg/dL (8.7-10.3); Carbon Dioxide 23.2 mmol/L (21.6-31.8); Chloride 99 mmol/L (96-109); Globulin 2.7 g/dL (1.6-3.3); Glucose 93 mg/dL (70-110); Potassium 5.2 mmol/L (3.5-5.5); Sodium 133 mmol/L (135-145); Total Bilirubin 0.4 mg/dL (0.3-1.2); Total Protein 5.7 g/dL (6.2-8.2)
[2024-08-07 08:51] LABS: HCT 36.2 % (39.6-50.0); HGB 11.9 g/dL (13.0-17.0); MCH 33.3 pg (27.0-32.0); MCHC 32.9 g/dL (32.0-37.0); MCV 101.4 FL (80.0-97.0); Mean Platelet Volume 9.4 FL (9.5-12.2); NRBC Per 100 WBC 0 X 10*3/uL (0.00-0.01); Platelet Count 479 X 10*3/uL (140-440); RBC 3.57 X 10*6/uL (4.40-5.60); RDW 14.2 % (11.5-14.5); WBC 16.69 X 10*3/uL (4.50-10.00)
[2024-08-07] MEDS: PANTOPRAZOLE 40 MG/10 ML VIAL IV SCH (09:49)
[2024-08-07] MEDS: LISINOPRIL-HCTZ 20-25 MG 1 EACH TAB PO SCH (09:52)
[2024-08-07 09:56] LABS: Basophils # (A) 0.12 X 10*3/uL (0.00-0.10); Basophils % (A) 0.7 %; Eosinophils # (A) 0.01 X 10*3/uL (0.04-0.35); Eosinophils % (A) 0.1 %; Lymphocytes # (A) 1.36 X 10*3/uL (0.90-5.00); Lymphocytes % (A) 8.1 %; Monocytes # (A) 0.76 X 10*3/uL (0.20-1.00); Monocytes % (A) 4.6 %; Neutrophils # (A) 14.38 X 10*3/uL (1.80-7.70); Neutrophils % (A) 86.1 %
[2024-08-07] MEDS: ACETAMINOPHEN IV (For NPO) 1,000 MG in EMPTY BAG 1 BAG IVPB SCH (12:39)
--- NOTE | 2024-08-07 13:28 | P.CONS ---
History of Present Illness - Reason for Consult Consult date: 08/07/24 - History of Present Illness History of present illness: 53-year-old male patient with past medical history significant for hypertension, history of anemia, history of colon polyps who presented to ER with a complaint of abdominal pain. Patient reported that he was having abdominal pain for the last 4 to 5 days, symptom were fluctuating, initially were improving and got worse last night prior to coming to the ED, patient also reported intermittent fever and chills. Patient reported nausea, constipation. Patient denied any sore throat, headache, shortness of breath, chest pain, palpitations, dysuria urgency frequency weakness of numbness of the extremities. Patient had colonoscopy about 8 years ago for rectal bleeding and had 3 polyps removed at that time. Patient had a fever of 100.5 in the ED was tachycardic with heart rate 112, respiratory rate 18, blood pressure 135/88, was saturating 98% on room air. WBCs were elevated 22.0 in the ED, hemoglobin 13.4, platelet 574. Sodium 131, potassium 4.6, chloride 98 CO2 23 BUN 11 creatinine 0.76, liver profile unremarkable. UA was positive for 30 WBCs, small amount of leukocyte Estrace. CT abdomen pelvis showed masslike area of wall thickening of sigmoid colon with free peritoneal fluid compatible with abscess, findings could represent perforated mass versus perforated colitis with abscess formation, circumferential wall thickening up to 10 mm of bladder. Trace ascites. Dilated appendix with mild inflammation. Assessment and plan: Perforated sigmoid colon with abscess: Presented with abdominal pain, nausea, constipation Febrile with tachycardia and leukocytosis on presentation CT abdomen pelvis showed masslike area of wall thickening of sigmoid colon with fiery peritoneal fluid compatible with abscess, concern for perforated mass versus perforated colitis with abscess formation. Status post exploratory laparotomy with sigmoid colon resection with end colostomy and abdominal washout on 08/06 Management per general surgery Bowel rest with n.p.o., NG tube, pain control, antiemetics. IV fluids Zosyn Infectious disease consult Hypertension: Continue lisinopril, hydrochlorothiazide. DVT prophylaxis SCD Monitor vital signs and labs Labs and medication were reviewed. Continue same treatment. Further recommendations as per clinical course of the patient PHYSICAL EXAMINATION: GENERAL: The patient is A&O x3, NAD HEENT: EOMI, Sclerae anicteric, Moist Mucous membranes Neck: Supple, Non tender, No JVD PULMONARY: Equal breath souds B/L, No wheezing, No crackles. CARDIOVASCULAR: S1, S2 present. No murmurs, rubs, or gallops. ABDOMEN: Abdominal binder in place. Generalized tenderness. MUSCULOSKELETAL: No edema, No cyanosis. No clubbing. Normal ROM. Intact peripheral pulses. NEUROLOGICAL: CN 2-12 grossly intact. No FND REVIEW OF SYSTEMS: CONSTITUTIONAL: Complains of fever, fatigue. HEENT: No recent visual problems or hearing problems. Denied any sore throat. CARDIOVASCULAR: No chest pain, orthopnea, PND, no palpitations, no syncope. PULMONARY: No shortness of breath, no cough, no hemoptysis. GASTROINTESTINAL: Complaining of abdominal pain. NEUROLOGICAL: No headaches, no weakness, no numbness. HEMATOLOGICAL: Denies any bleeding or petechiae. GENITOURINARY: Denies any burning micturition, frequency, or urgency. MUSCULOSKELETAL/RHEUMATOLOGICAL: Denies any joint pain, swelling, or any muscle pain. ENDOCRINE: Denies any polyuria or polydipsia. The rest of the 14-point review of systems is negative. Dictation was produced using [employer] dictation software. please excuse any grammatical, word or spelling errors. Past Medical History Past Medical History: Hypertension Additional Past Medical History / Comment(s): fx rt ankle,hx anemia,colon polyps History of Any Multi-Drug Resistant Organisms: None Reported Past Surgical History: Orthopedic Surgery Additional Past Surgical History / Comment(s): wisdom teeth removed,dental work Past Anesthesia/Blood Transfusion Reactions: No Reported Reaction Additional Past Anesthesia/Blood Transfusion Reaction / Comm: never has had general anesthesia or blood transfusion Past Psychological History: No Psychological Hx Reported Smoking Status: Former smoker Past Alcohol Use History: None Reported Additional Past Alcohol Use History / Comment(s): quit smoking 10 yrs. ago, smoked for 10 yrs. Past Drug Use History: None Reported - Past Family History Mother Family Medical History: No Reported History Medications and Allergies Home Medications Medication Instructions Recorded Confirmed Type Lisinopril-Hctz 20-25 mg 1 tab PO DAILY 09/19/18 08/06/24 History [Zestoretic 20-25] Ibuprofen [Motrin] 800 mg PO TID PRN 08/06/24 08/06/24 History Allergies Allergy/AdvReac Type Severity Reaction Status Date / Time No Known Allergies Allergy Verified 08/06/24 19:52 Physical Exam Vitals: Vital Signs Temp Pulse Pulse Resp BP BP Pulse Ox 08/07/24 07:20 98.5 F 103 H 16 130/89 97 08/07/24 01:56 91 16 126/87 100 08/07/24 01:41 87 16 153/80 99 08/07/24 01:26 89 16 137/90 99 08/07/24 01:11 90 16 143/87 98 08/07/24 00:56 104 H 16 161/97 97 08/07/24 00:49 97.9 F 104 H 16 159/99 97 08/07/24 00:15 89 18 143/82 97 08/07/24 00:00 98 18 144/88 98 08/06/24 23:45 101 H 18 145/89 98 08/06/24 23:30 96 18 148/97 99 08/06/24 23:15 87 18 136/89 99 08/06/24 22:56 97.3 F L 106 H 18 135/88 98 08/06/24 20:49 100.5 F H 112 H 18 08/06/24 19:33 100.0 F H 105 H 20 115/81 96 08/06/24 18:15 100.3 F H 120 H 18 130/85 99 08/06/24 17:12 100 F H 133 H 20 120/84 99 Intake and Output 08/06/24 08/07/24 08/07/24 22:59 06:59 14:59 Intake Total 1900 855 Output Total 250 40 Balance 1650 855 -40 Intake: IV 1900 Intake, IV Titration 855 Amount Lactated Ringers 1,000 ml 780 @ 130 mls/hr IV .Q7H42M [facility] Rx#:[id number] Piperacillin-Tazobactam 3 75 .375 gm In Sodium Chloride 0.9% 100 ml @ 25 mls/hr IVPB Q8H [facility] Rx#: [id number] Output: Drainage 40 Abdomen 40 Urine 150 Estimated Blood Loss 100 Other: Voiding Method Indwelling Catheter Indwelling Catheter Weight 56.699 kg 56.699 kg Results CBC & Chem 7: 08/07/24 03:19 08/07/24 03:19 Labs: Abnormal Lab Results - Last 24 Hours (Table) 08/06/24 08/06/24 08/07/24 Range/Units 18:05 18:05 02:44 WBC 22.0 H (3.8-10.6) k/uL RBC 4.17 L (4.30-5.90) m/uL Hgb (13.0-17.0) g/dL Hct (39.6-50.0) % MCV 100.1 H (80.0-100.0) fL MCH (27.0-32.0) pg Plt Count 574 H (150-450) k/uL MPV (9.5-12.2) FL Immature Gran # (0.00-0.04) X 10*3/uL Neutrophils # 19.8 H (1.3-7.7) k/uL Eosinophils # (0.04-0.35) X 10*3/uL Basophils # (0.00-0.10) X 10*3/uL Sodium 131 L (137-145) mmol/L Glucose 118 H (74-99) mg/dL Calcium (8.7-10.3) mg/dL ALT (10-49) U/L Total Protein (6.2-8.2) g/dL Albumin (3.8-4.9) g/dL Albumin/Globulin Ratio (1.60-3.17) Ratio Ur Specific [place] >1.050 H (1.001-1.035) Urine Protein Trace H (Negative) Ur Leukocyte Esterase Small H (Negative) Urine RBC 15 H (0-5) /hpf Urine WBC 30 H (0-5) /hpf Urine WBC Clumps Rare H (None) /hpf Urine Bacteria Rare H (None) /hpf Urine Mucus Rare H (None) /hpf Urine Yeast (Budding) Rare H (None) /hpf 08/07/24 08/07/24 Range/Units 03:19 03:19 WBC 16.69 H (3.8-10.6) k/uL RBC 3.57 L (4.30-5.90) m/uL Hgb 11.9 L (13.0-17.0) g/dL Hct 36.2 L (39.6-50.0) % MCV 101.4 H (80.0-100.0) fL MCH 33.3 H (27.0-32.0) pg Plt Count 479 H (150-450) k/uL MPV 9.4 L (9.5-12.2) FL Immature Gran # 0.06 H (0.00-0.04) X 10*3/uL Neutrophils # 14.38 H (1.3-7.7) k/uL Eosinophils # 0.01 L (0.04-0.35) X 10*3/uL Basophils # 0.12 H (0.00-0.10) X 10*3/uL Sodium 133 L (137-145) mmol/L Glucose (74-99) mg/dL Calcium 8.4 L (8.7-10.3) mg/dL ALT 8 L (10-49) U/L Total Protein 5.7 L (6.2-8.2) g/dL Albumin 3.0 L (3.8-4.9) g/dL Albumin/Globulin Ratio 1.11 L (1.60-3.17) Ratio Ur Specific [place] (1.001-1.035) Urine Protein (Negative) Ur Leukocyte Esterase (Negative) Urine RBC (0-5) /hpf Urine WBC (0-5) /hpf Urine WBC Clumps (None) /hpf Urine Bacteria (None) /hpf Urine Mucus (None) /hpf Urine Yeast (Budding) (None) /hpf
--- NOTE | 2024-08-07 14:21 | P.PN ---
Subjective Progress Note Date: 08/07/24 SURGICAL PROGRESS NOTE CHIEF COMPLAINT: Perforated sigmoid colon with abscess HISTORY OF PRESENT ILLNESS: Postop day# 1 status post exploratory laparotomy, sigmoid colon resection with end colostomy and abdominal washout. Patient complains of abdominal pain with movement. He is sitting up in bedside chair this morning. NG tube with 150 mL bilious output. MELITA drain 40 mL serosanguineous output. Ostomy functioning. Denies any nausea. Afebrile. WBC is down from 22-16 Hgb 11.9 PHYSICAL EXAM: VITAL SIGNS: Reviewed. GENERAL: Well-developed in no acute distress. ABDOMEN: Soft. Nondistended. Tender at incision site. Incisional dressing with a few small areas of shadowing. Ostomy on the left stoma beefy red with stool. NEUROLOGIC: Alert and oriented. Cranial nerves II through XII grossly intact. ASSESSMENT: 1. Perforated sigmoid colon with abscess PLAN: -Continue NG tube to low intermittent suction -Keep patient n.p.o. except for ice chips -Follow-up on pathology results -IV Tylenol and Dilaudid increased every 3 hours for pain management -Discontinue Veronica catheter in a.m. -Incentive spirometer ordered -Increase activity level -Continue antibiotics -Continue IV fluids -DVT prophylaxis subcu heparin Physician Hobber note has been reviewed by physician. Signing provider agrees with the documented findings, assessment, and plan of care. Attestation Postoperative day #1, exploratory laparotomy, sigmoid colon resection with end colostomy and abdominal washout. Mild amount of stool in colostomy bag. Continue nasogastric tube and keep patient n.p.o. at this time. Pain medications were addressed. Will keep Veronica catheter for today with plan to discontinue tomorrow. Continue IV fluids. Continue IV antibiotics. Increase activity as tolerated. Willi Shoemaker DO Objective - Vital Signs Vital signs: Vital Signs Temp 98.5 F 08/07/24 07:20 Pulse 103 H 08/07/24 07:20 Resp 16 08/07/24 07:20 BP 130/89 08/07/24 07:20 Pulse Ox 97 08/07/24 07:20 FiO2 Intake & Output 08/06/24 08/07/24 08/07/24 18:59 06:59 18:59 Intake Total 2755 Output Total 250 40 Balance 2505 -40 Weight 56.699 kg 56.699 kg Intake: IV 1900 Intake, IV Titration 855 Amount Lactated Ringers 1,000 ml 780 @ 130 mls/hr IV .Q7H42M [facility] Rx#:[id number] Piperacillin-Tazobactam 3 75 .375 gm In Sodium Chloride 0.9% 100 ml @ 25 mls/hr IVPB Q8H [facility] Rx#: [id number] Output: Drainage 40 Abdomen 40 Urine 150 Estimated Blood Loss 100 Other: Voiding Method Indwelling Catheter Indwelling Catheter - Labs CBC & Chem 7: 08/07/24 03:19 08/07/24 03:19 Labs: Abnormal Lab Results - Last 24 Hours (Table) 08/06/24 08/06/24 08/07/24 Range/Units 18:05 18:05 02:44 WBC 22.0 H (3.8-10.6) k/uL RBC 4.17 L (4.30-5.90) m/uL Hgb (13.0-17.0) g/dL Hct (39.6-50.0) % MCV 100.1 H (80.0-100.0) fL MCH (27.0-32.0) pg Plt Count 574 H (150-450) k/uL MPV (9.5-12.2) FL Immature Gran # (0.00-0.04) X 10*3/uL Neutrophils # 19.8 H (1.3-7.7) k/uL Eosinophils # (0.04-0.35) X 10*3/uL Basophils # (0.00-0.10) X 10*3/uL Sodium 131 L (137-145) mmol/L Glucose 118 H (74-99) mg/dL Calcium (8.7-10.3) mg/dL ALT (10-49) U/L Total Protein (6.2-8.2) g/dL Albumin (3.8-4.9) g/dL Albumin/Globulin Ratio (1.60-3.17) Ratio Ur Specific [place] >1.050 H (1.001-1.035) Urine Protein Trace H (Negative) Ur Leukocyte Esterase Small H (Negative) Urine RBC 15 H (0-5) /hpf Urine WBC 30 H (0-5) /hpf Urine WBC Clumps Rare H (None) /hpf Urine Bacteria Rare H (None) /hpf Urine Mucus Rare H (None) /hpf Urine Yeast (Budding) Rare H (None) /hpf 08/07/24 08/07/24 Range/Units 03:19 03:19 WBC 16.69 H (3.8-10.6) k/uL RBC 3.57 L (4.30-5.90) m/uL Hgb 11.9 L (13.0-17.0) g/dL Hct 36.2 L (39.6-50.0) % MCV 101.4 H (80.0-100.0) fL MCH 33.3 H (27.0-32.0) pg Plt Count 479 H (150-450) k/uL MPV 9.4 L (9.5-12.2) FL Immature Gran # 0.06 H (0.00-0.04) X 10*3/uL Neutrophils # 14.38 H (1.3-7.7) k/uL Eosinophils # 0.01 L (0.04-0.35) X 10*3/uL Basophils # 0.12 H (0.00-0.10) X 10*3/uL Sodium 133 L (137-145) mmol/L Glucose (74-99) mg/dL Calcium 8.4 L (8.7-10.3) mg/dL ALT 8 L (10-49) U/L Total Protein 5.7 L (6.2-8.2) g/dL Albumin 3.0 L (3.8-4.9) g/dL Albumin/Globulin Ratio 1.11 L (1.60-3.17) Ratio Ur Specific [place] (1.001-1.035) Urine Protein (Negative) Ur Leukocyte Esterase (Negative) Urine RBC (0-5) /hpf Urine WBC (0-5) /hpf Urine WBC Clumps (None) /hpf Urine Bacteria (None) /hpf Urine Mucus (None) /hpf Urine Yeast (Budding) (None) /hpf
[2024-08-07] MEDS: HEPARIN SODIUM,PORCINE 5,000 UNIT/ML 1 ML VIAL SQ SCH (21:02)
--- NOTE | 2024-08-07 23:01 | P.CONS ---
History of Present Illness - Reason for Consult Consult date: 08/07/24 Sepsis abdominal abscess Requesting physician: Jacob Guerrero - Chief Complaint Abdominal pain x few days - History of Present Illness Patient is a 53-year-old male with a past medical history significant for hypertension former smoker presenting to the hospital for evaluation of abdominal pain in this patient who is seen to have problem off-and-on with the constipation and has been dealing with abdominal pain for the last 4 days that has significantly got worse for the patient has been brought to the hospital patient has been describing the pain to the lower abdominal area sharp almost out of 10 but the patient presented to hospital with associated nausea but no vomiting and has been dealing with constipation as mentioned earlier patient also have been running a fever for about 2 days before presentation to the hospital on arrival to the ER the patient was febrile with a temperature of 100.3 F patient was tachycardic but not hypotensive no distress on room air has been documented he is currently on a 2 L current oxygen patient did have white count of 22,000 with a left shift creatinine 0.76 electrolytes are normal liver enzymes normal urine is mildly positive patient did have abdominal pelvis CT masslike area of wall thickening of the sigmoid colon with free peritoneal fluid compatible with abscess concerning for perforated diverticulitis with an abscess patient was evaluated by general surgery taken to the OR last night and this patient with status post exploratory laparotomy sigmoid colon resection and colostomy abdominal washout cultures obtained infectious disease was consulted for further management of antibiotic therapy Review of Systems Positive point and negatives has been mentioned in the HPI, complete review of systems was performed and all other systems are negative Past Medical History Past Medical History: Hypertension Additional Past Medical History / Comment(s): fx rt ankle,hx anemia,colon polyps History of Any Multi-Drug Resistant Organisms: None Reported Past Surgical History: Orthopedic Surgery Additional Past Surgical History / Comment(s): wisdom teeth removed,dental work Past Anesthesia/Blood Transfusion Reactions: No Reported Reaction Additional Past Anesthesia/Blood Transfusion Reaction / Comm: never has had general anesthesia or blood transfusion Past Psychological History: No Psychological Hx Reported Smoking Status: Former smoker Past Alcohol Use History: None Reported Additional Past Alcohol Use History / Comment(s): quit smoking 10 yrs. ago, smoked for 10 yrs. Past Drug Use History: None Reported - Past Family History Mother Family Medical History: No Reported History Medications and Allergies Home Medications Medication Instructions Recorded Confirmed Type Lisinopril-Hctz 20-25 mg 1 tab PO DAILY 09/19/18 08/06/24 History [Zestoretic ] Ibuprofen [Motrin] 800 mg PO TID PRN 08/06/24 08/06/24 History Allergies Allergy/AdvReac Type Severity Reaction Status Date / Time No Known Allergies Allergy Verified 08/06/24 19:52 Physical Exam Vitals: Vital Signs Temp Pulse Pulse Resp BP BP Pulse Ox 08/07/24 07:20 98.5 F 103 H 16 130/89 97 08/07/24 01:56 91 16 126/87 100 08/07/24 01:41 87 16 153/80 99 08/07/24 01:26 89 16 137/90 99 08/07/24 01:11 90 16 143/87 98 08/07/24 00:56 104 H 16 161/97 97 08/07/24 00:49 97.9 F 104 H 16 159/99 97 08/07/24 00:15 89 18 143/82 97 08/07/24 00:00 98 18 144/88 98 08/06/24 23:45 101 H 18 145/89 98 08/06/24 23:30 96 18 148/97 99 08/06/24 23:15 87 18 136/89 99 08/06/24 22:56 97.3 F L 106 H 18 135/88 98 08/06/24 20:49 100.5 F H 112 H 18 08/06/24 19:33 100.0 F H 105 H 20 115/81 96 08/06/24 18:15 100.3 F H 120 H 18 130/85 99 08/06/24 17:12 100 F H 133 H 20 120/84 99 Intake and Output 08/06/24 08/07/24 08/07/24 22:59 06:59 14:59 Intake Total 1900 855 Output Total 250 40 Balance 1650 855 -40 Intake: IV 1900 Intake, IV Titration 855 Amount Lactated Ringers 1,000 ml 780 @ 130 mls/hr IV .Q7H42M [facility] Rx#:[id number] Piperacillin-Tazobactam 3 75 .375 gm In Sodium Chloride 0.9% 100 ml @ 25 mls/hr IVPB Q8H [facility] Rx#: [id number] Output: Drainage 40 Abdomen 40 Urine 150 Estimated Blood Loss 100 Other: Voiding Method Indwelling Catheter Indwelling Catheter Weight 56.699 kg 56.699 kg GENERAL DESCRIPTION: Middle-age male up in the chair, no distress. No tachypnea or accessory muscle of respiration use. HEENT: Shows Pallor , no scleral icterus. Oral mucous membrane is dry. NECK: Trachea central, no thyromegaly. LUNGS: Unlabored breathing. Clear to auscultation anteriorly. No wheeze or crackle. HEART: S1, S2, regular rate and rhythm. No loud murmur ABDOMEN: Soft, mild tenderness , EXTREMITIES: No edema of feet. SKIN: No rash, no masses palpable. NEUROLOGICAL: The patient is awake, alert, oriented x3, mood and affect normal. Results CBC & Chem 7: 08/07/24 03:19 08/07/24 03:19 Labs: Abnormal Lab Results - Last 24 Hours (Table) 08/06/24 08/06/24 08/07/24 Range/Units 18:05 18:05 02:44 WBC 22.0 H (3.8-10.6) k/uL RBC 4.17 L (4.30-5.90) m/uL Hgb (13.0-17.0) g/dL Hct (39.6-50.0) % MCV 100.1 H (80.0-100.0) fL MCH (27.0-32.0) pg Plt Count 574 H (150-450) k/uL MPV (9.5-12.2) FL Immature Gran # (0.00-0.04) X 10*3/uL Neutrophils # 19.8 H (1.3-7.7) k/uL Eosinophils # (0.04-0.35) X 10*3/uL Basophils # (0.00-0.10) X 10*3/uL Sodium 131 L (137-145) mmol/L Glucose 118 H (74-99) mg/dL Calcium (8.7-10.3) mg/dL ALT (10-49) U/L Total Protein (6.2-8.2) g/dL Albumin (3.8-4.9) g/dL Albumin/Globulin Ratio (1.60-3.17) Ratio Ur Specific [place] >1.050 H (1.001-1.035) Urine Protein Trace H (Negative) Ur Leukocyte Esterase Small H (Negative) Urine RBC 15 H (0-5) /hpf Urine WBC 30 H (0-5) /hpf Urine WBC Clumps Rare H (None) /hpf Urine Bacteria Rare H (None) /hpf Urine Mucus Rare H (None) /hpf Urine Yeast (Budding) Rare H (None) /hpf 08/07/24 08/07/24 Range/Units 03:19 03:19 WBC 16.69 H (3.8-10.6) k/uL RBC 3.57 L (4.30-5.90) m/uL Hgb 11.9 L (13.0-17.0) g/dL Hct 36.2 L (39.6-50.0) % MCV 101.4 H (80.0-100.0) fL MCH 33.3 H (27.0-32.0) pg Plt Count 479 H (150-450) k/uL MPV 9.4 L (9.5-12.2) FL Immature Gran # 0.06 H (0.00-0.04) X 10*3/uL Neutrophils # 14.38 H (1.3-7.7) k/uL Eosinophils # 0.01 L (0.04-0.35) X 10*3/uL Basophils # 0.12 H (0.00-0.10) X 10*3/uL Sodium 133 L (137-145) mmol/L Glucose (74-99) mg/dL Calcium 8.4 L (8.7-10.3) mg/dL ALT 8 L (10-49) U/L Total Protein 5.7 L (6.2-8.2) g/dL Albumin 3.0 L (3.8-4.9) g/dL Albumin/Globulin Ratio 1.11 L (1.60-3.17) Ratio Ur Specific [place] (1.001-1.035) Urine Protein (Negative) Ur Leukocyte Esterase (Negative) Urine RBC (0-5) /hpf Urine WBC (0-5) /hpf Urine WBC Clumps (None) /hpf Urine Bacteria (None) /hpf Urine Mucus (None) /hpf Urine Yeast (Budding) (None) /hpf Assessment and Plan (1) Perforated sigmoid colon Current Visit: Yes Status: Acute Code(s): K63.1 - PERFORATION OF INTESTINE (NONTRAUMATIC) SNOMED Code(s): 729954688 (2) Sepsis Current Visit: Yes Status: Acute Code(s): A41.9 - SEPSIS, UNSPECIFIED ORGANI SM SNOMED Code(s): 63925900 (3) Intra-abdominal abscess Current Visit: Yes Status: Acute Code(s): K65.1 - PERITONEAL ABSCESS SNOMED Code(s): 11024634 Plan: 1patient presented hospital with sepsis in this patient noted to have fever tachycardia elevated white count meeting currently for SIRS source is perforated diverticulitis with intra-abdominal abscess status post sigmoid colectomy and diverting colostomy there was concern for some circumferential wall thickening of the bladder but no clear indication of any colovesical fistula reported on the operative report 2-we will need to cover for the polymicrobial enteric gram-negative yvrose both aerobes and anaerobes 3-patient will be empirically treated with Zosyn 3.375 g every 8 hours while waiting for the culture to finalize Family at the bedside multiple question concern answered We will follow on clinical condition and cultures to further adjust medication if needed Thank you for this consultation we will follow the patient along with you Dictation was produced using [employer] dictation software. please excuse any grammatical, word or spelling errors. Time with Patient: Greater than 30
[2024-08-08 08:33] LABS: Magnesium 1.7 mg/dL (1.5-2.4); Phosphorus 4.5 mg/dL (2.4-5.1)
[2024-08-08 08:46] LABS: Blood Urea Nitrogen 17.1 mg/dL (9.0-27.0); Calcium 8.3 mg/dL (8.7-10.3); Carbon Dioxide 24.2 mmol/L (21.6-31.8); Chloride 102 mmol/L (96-109); Glucose 75 mg/dL (70-110); Potassium 4.8 mmol/L (3.5-5.5); Sodium 135 mmol/L (135-145)
[2024-08-08 08:48] LABS: Basophils # (A) 0.08 X 10*3/uL (0.00-0.10); Basophils % (A) 0.5 %; Eosinophils % (A) 0.6 %; HCT 30.6 % (39.6-50.0); HGB 9.8 g/dL (13.0-17.0); Lymphocytes # (A) 0.64 X 10*3/uL (0.90-5.00); Lymphocytes % (A) 3.9 %; MCH 32.7 pg (27.0-32.0); Mean Platelet Volume 9.9 FL (9.5-12.2); Monocytes # (A) 1.09 X 10*3/uL (0.20-1.00); Monocytes % (A) 6.6 %; NRBC Per 100 WBC 0 X 10*3/uL (0.00-0.01); Neutrophils # (A) 14.47 X 10*3/uL (1.80-7.70); Neutrophils % (A) 87.6 %; Platelet Count 438 X 10*3/uL (140-440); RDW 14.2 % (11.5-14.5); WBC 16.52 X 10*3/uL (4.50-10.00)
--- NOTE | 2024-08-08 14:04 | P.PN ---
Subjective Progress Note Date: 08/08/24 SURGICAL PROGRESS NOTE CHIEF COMPLAINT: Perforated sigmoid colon with abscess HISTORY OF PRESENT ILLNESS: Postop day# 2 status post exploratory laparotomy, sigmoid colon resection with end colostomy and abdominal washout. Patient's pain is controlled. He is having output from his ostomy. NG tube with 200 mL darkish output. There have been 750 output through the night. MELITA drain 80 mL serosanguineous output. Afebrile. BP 110/71 WBC 16.5 Hgb 9.8 PHYSICAL EXAM: VITAL SIGNS: Reviewed. GENERAL: Well-developed in no acute distress. ABDOMEN: Soft. Nondistended. Tender at incision site. Incisional dressing with a few small areas of shadowing. Ostomy on the left stoma beefy red with liquidy brown stool. NEUROLOGIC: Alert and oriented. Cranial nerves II through XII grossly intact. ASSESSMENT: 1. Perforated sigmoid colon with abscess PLAN: -Clamp NG tube. Start clear liquids. If tolerates after 6 hours okay to pull NG tube -Follow-up on pathology results -Continue pain management -Discontinue Veronica catheter this a.m. -Incentive spirometer ordered -Increase activity level -Continue antibiotics -Continue IV fluids -Repeat labs in a.m. -DVT prophylaxis subcu heparin Physician City Administrator note has been reviewed by physician. Signing provider agrees with the documented findings, assessment, and plan of care. Objective - Vital Signs Vital signs: Vital Signs Temp 97.9 F 08/08/24 07:04 Pulse 82 08/08/24 07:04 Resp 17 08/08/24 07:04 BP 93/56 08/08/24 07:04 Pulse Ox 98 08/08/24 07:04 FiO2 Intake & Output 08/07/24 08/08/24 08/08/24 18:59 06:59 18:59 Output Total 810 1130 40 Balance -810 -1130 -40 Output: Gastric Drainage 400 750 Drainage 60 80 40 Abdomen 60 80 40 Urine 350 300 Other: Voiding Method Indwelling Catheter Indwelling Catheter # Voids 1 # Bowel Movements 0 - Labs CBC & Chem 7: 08/08/24 04:19 08/08/24 04:19 Labs: Abnormal Lab Results - Last 24 Hours (Table) 08/08/24 08/08/24 Range/Units 04:19 04:19 WBC 16.52 H (4.50-10.00) X 10*3/uL RBC 3.00 L (4.40-5.60) X 10*6/uL Hgb 9.8 L (13.0-17.0) g/dL Hct 30.6 L (39.6-50.0) % MCV 102.0 H (80.0-97.0) FL MCH 32.7 H (27.0-32.0) pg Immature Gran # 0.14 H (0.00-0.04) X 10*3/uL Neutrophils # 14.47 H (1.80-7.70) X 10*3/uL Lymphocytes # 0.64 L (0.90-5.00) X 10*3/uL Monocytes # 1.09 H (0.20-1.00) X 10*3/uL Calcium 8.3 L (8.7-10.3) mg/dL Microbiology - Last 24 Hours (Table) 08/07/24 02:44 Urine Culture - Final Urine,Voided 08/06/24 22:25 Gram Stain - Preliminary Peritoneal Fluid Body Fluid Culture - Preliminary 08/06/24 18:42 Blood Culture - Preliminary Blood
[2024-08-08] MEDS: ACETAMINOPHEN IV (For NPO) 1,000 MG in EMPTY BAG 1 BAG IVPB SCH (14:06)
--- NOTE | 2024-08-08 14:57 | P.PN ---
Subjective Progress Note Date: 08/08/24 Principal diagnosis: Reason for follow-up is perforated diverticulitis/abscess Patient is a 53-year-old male with a past medical history significant for hypertension former smoker presenting to the hospital for evaluation of abdominal pain and has been diagnosed with perforated diverticulitis with abscess status post diverting colostomy drainage of the abscess. On today's evaluation that is 08/08/2024,the patient remains to be afebrile, patient is on room air not requiring supplemental oxygen and denies any shortness of breath no chest pain or cough.Patient denies having any nausea or vomiting, abdominal pain is currently controlled. Patient white count 16.52 creatinine is 1.0 abdominal cultures currently pending Objective - Vital Signs Vital signs: Vital Signs Temp 97.9 F 08/08/24 07:04 Pulse 82 08/08/24 07:04 Resp 17 08/08/24 07:04 BP 93/56 08/08/24 07:04 Pulse Ox 98 08/08/24 07:04 FiO2 Intake & Output 08/07/24 08/08/24 08/08/24 18:59 06:59 18:59 Output Total 810 1130 40 Balance -810 -1130 -40 Output: Gastric Drainage 400 750 Drainage 60 80 40 Abdomen 60 80 40 Urine 350 300 Other: Voiding Method Indwelling Catheter Indwelling Catheter # Voids 1 # Bowel Movements 0 - Exam GENERAL DESCRIPTION: Middle-age male up in bed in no distress RESPIRATORY SYSTEM: Unlabored breathing , decreased breath sounds at bases HEART: S1 S2 regular rate and rhythm , ABDOMEN: Soft , mild tenderness EXTREMITIES: No edema feet - Labs CBC & Chem 7: 08/08/24 04:19 08/08/24 04:19 Labs: Abnormal Lab Results - Last 24 Hours (Table) 08/08/24 08/08/24 Range/Units 04:19 04:19 WBC 16.52 H (4.50-10.00) X 10*3/uL RBC 3.00 L (4.40-5.60) X 10*6/uL Hgb 9.8 L (13.0-17.0) g/dL Hct 30.6 L (39.6-50.0) % MCV 102.0 H (80.0-97.0) FL MCH 32.7 H (27.0-32.0) pg Immature Gran # 0.14 H (0.00-0.04) X 10*3/uL Neutrophils # 14.47 H (1.80-7.70) X 10*3/uL Lymphocytes # 0.64 L (0.90-5.00) X 10*3/uL Monocytes # 1.09 H (0.20-1.00) X 10*3/uL Calcium 8.3 L (8.7-10.3) mg/dL Microbiology - Last 24 Hours (Table) 08/07/24 02:44 Urine Culture - Final Urine,Voided 08/06/24 22:25 Gram Stain - Preliminary Peritoneal Fluid Body Fluid Culture - Preliminary 08/06/24 18:42 Blood Culture - Preliminary Blood Assessment and Plan (1) Perforated sigmoid colon Current Visit: Yes Status: Acute Code(s): K63.1 - PERFORATION OF INTESTINE (NONTRAUMATIC) SNOMED Code(s): 138932096 (2) Sepsis Current Visit: Yes Status: Acute Code(s): A41.9 - SEPSIS, UNSPECIFIED ORGANISM SNOMED Code(s): 99637935 (3) Intra-abdominal abscess Current Visit: Yes Status: Acute Code(s): K65.1 - PERITONEAL ABSCESS SNOMED Code(s): 79171373 Plan: 1patient presented hospital with sepsis in this patient noted to have fever tachycardia elevated white count meeting currently for SIRS source is perforated diverticulitis with intra-abdominal abscess status post sigmoid colectomy and diverting colostomy there was concern for some circumferential wall thickening of the bladder but no clear indication of any colovesical fistula reported on the operative report 2-patient is currently being treated with Zosyn 3.375 g every 8 hours while waiting for the culture to finalize and monitor clinical course closely at the bedside multiple question concern answered Dictation was produced using [employer] dictation software. please excuse any grammatical, word or spelling errors. Time with Patient: Less than 30
--- NOTE | 2024-08-08 15:21 | P.PN ---
Subjective Progress Note Date: 08/08/24 Interval History: 53-year-old male patient with past medical history significant for hypertension, history of anemia, history of colon polyps who presented to ER with a complaint of abdominal pain. Patient reported that he was having abdominal pain for the last 4 to 5 days, symptom were fluctuating, initially were improving and got worse last night prior to coming to the ED, patient also reported intermittent fever and chills. Patient reported nausea, constipation. Patient denied any sore throat, headache, shortness of breath, chest pain, palpitations, dysuria urgency frequency weakness of numbness of the extremities. Patient had colonoscopy about 8 years ago for rectal bleeding and had 3 polyps removed at that time. Patient had a fever of 100.5 in the ED was tachycardic with heart rate 112, respiratory rate 18, blood pressure 135/88, was saturating 98% on room air. WBCs were elevated 22.0 in the ED, hemoglobin 13.4, platelet 574. Sodium 131, potassium 4.6, chloride 98 CO2 23 BUN 11 creatinine 0.76, liver profile unremarkable. UA was positive for 30 WBCs, small amount of leukocyte Estrace. CT abdomen pelvis showed masslike area of wall thickening of sigmoid colon with free peritoneal fluid compatible with abscess, findings could represent perforated mass versus perforated colitis with abscess formation, circumferential wall thickening up to 10 mm of bladder. Trace ascites. Dilated appendix with mild inflammation. 08/08--patient was seen and examined today. Patient feeling better today. Pain is controlled. Output noted in the ostomy bag. MELITA drain with SS output. Afebrile, vital stable. WBCs 16.5, hemoglobin 9.8, platelet 438. BMP unremarkable. General surgery following, plan for NG tube clamping trial, with clear liquid diet today. Assessment and plan: Perforated sigmoid colon with abscess: Presented with abdominal pain, nausea, constipation Febrile with tachycardia and leukocytosis on presentation CT abdomen pelvis showed masslike area of wall thickening of sigmoid colon with fiery peritoneal fluid compatible with abscess, concern for perforated mass versus perforated colitis with abscess formation. Status post exploratory laparotomy with sigmoid colon resection with end colostomy and abdominal washout on 08/06 Management per general surgery Was initially n.p.o. for bowel rest, was NG tube in place, plan for clamping trial with clear liquid diet today. Pain control, antiemetics. IV fluids Zosyn Infectious disease consulted Hypertension: Hold lisinopril, hydrochlorothiazide due to soft blood pressure DVT prophylaxis Subcutaneous heparin Monitor vital signs and labs Labs and medication were reviewed. Continue same treatment. Further recommendations as per clinical course of the patient PHYSICAL EXAMINATION: GENERAL: The patient is A&O x3, NAD HEENT: EOMI, Sclerae anicteric, Moist Mucous membranes Neck: Supple, Non tender, No JVD PULMONARY: Equal breath souds B/L, No wheezing, No crackles. CARDIOVASCULAR: S1, S2 present. No murmurs, rubs, or gallops. ABDOMEN: Incision intact, colostomy bag with greenish output. Generalized tenderness. MUSCULOSKELETAL: No edema, No cyanosis. No clubbing. Normal ROM. Intact peripheral pulses. NEUROLOGICAL: CN 2-12 grossly intact. No FND REVIEW OF SYSTEMS: CONSTITUTIONAL: No fever or chills. CARDIOVASCULAR: No chest pain, palpitations or syncope. PULMONARY: No shortness of breath, no cough, sore throat. GASTROINTESTINAL: No nausea, vomiting, diarrhea, abdominal pain. : No Dysuria, urgency, frequency. Extremities: No edema. NEUROLOGICAL: No headaches, no weakness, or numbness Dictation was produced using [employer] dictation software. please excuse any grammatical, word or spelling errors. Objective - Vital Signs Vital signs: Vital Signs Temp 97.9 F 08/08/24 07:04 Pulse 79 08/08/24 09:08 Resp 17 08/08/24 07:04 BP 110/71 08/08/24 09:08 Pulse Ox 98 08/08/24 09:08 FiO2 Intake & Output 08/07/24 08/08/24 08/08/24 18:59 06:59 18:59 Output Total 810 1130 490 Balance -810 -1130 -490 Output: Gastric Drainage 400 750 Drainage 60 80 90 Abdomen 60 80 90 Urine 350 300 400 Uretheral (Veronica) 200 Other: Voiding Method Indwelling Catheter Indwelling Catheter # Voids 1 # Bowel Movements 0 - Labs CBC & Chem 7: 08/08/24 04:19 08/08/24 04:19 Labs: Abnormal Lab Results - Last 24 Hours (Table) 08/08/24 08/08/24 Range/Units 04:19 04:19 WBC 16.52 H (4.50-10.00) X 10*3/uL RBC 3.00 L (4.40-5.60) X 10*6/uL Hgb 9.8 L (13.0-17.0) g/dL Hct 30.6 L (39.6-50.0) % MCV 102.0 H (80.0-97.0) FL MCH 32.7 H (27.0-32.0) pg Immature Gran # 0.14 H (0.00-0.04) X 10*3/uL Neutrophils # 14.47 H (1.80-7.70) X 10*3/uL Lymphocytes # 0.64 L (0.90-5.00) X 10*3/uL Monocytes # 1.09 H (0.20-1.00) X 10*3/uL Calcium 8.3 L (8.7-10.3) mg/dL Microbiology - Last 24 Hours (Table) 08/07/24 02:44 Urine Culture - Final Urine,Voided 08/06/24 22:25 Gram Stain - Preliminary Peritoneal Fluid Body Fluid Culture - Preliminary 08/06/24 18:42 Blood Culture - Preliminary Blood
[2024-08-09 08:38] LABS: ALT 24 U/L (10-49); AST 67 U/L (14-35); Albumin 2.4 g/dL (3.8-4.9); Albumin/Globulin Ratio 0.96 Ratio (1.60-3.17); Alkaline Phosphatase 81 U/L (41-126); BUN/Creat Ratio 19.78 Ratio (12.00-20.00); Blood Urea Nitrogen 17.8 mg/dL (9.0-27.0); Calcium 8.1 mg/dL (8.7-10.3); Chloride 102 mmol/L (96-109); Globulin 2.5 g/dL (1.6-3.3); Glucose 87 mg/dL (70-110); Sodium 135 mmol/L (135-145); Total Bilirubin 0.4 mg/dL (0.3-1.2); Total Protein 4.9 g/dL (6.2-8.2)
[2024-08-09 08:47] LABS: Basophils # (A) 0.04 X 10*3/uL (0.00-0.10); Basophils % (A) 0.3 %; Eosinophils # (A) 0.17 X 10*3/uL (0.04-0.35); Eosinophils % (A) 1.1 %; HGB 10.2 g/dL (13.0-17.0); Lymphocytes # (A) 0.86 X 10*3/uL (0.90-5.00); Lymphocytes % (A) 5.7 %; MCH 32.6 pg (27.0-32.0); MCHC 32.9 g/dL (32.0-37.0); Mean Platelet Volume 9.7 FL (9.5-12.2); Monocytes # (A) 1.03 X 10*3/uL (0.20-1.00); Monocytes % (A) 6.8 %; NRBC Per 100 WBC 0 X 10*3/uL (0.00-0.01); Neutrophils # (A) 12.93 X 10*3/uL (1.80-7.70); Neutrophils % (A) 85.4 %; Platelet Count 531 X 10*3/uL (140-440); RBC 3.13 X 10*6/uL (4.40-5.60); RDW 14.4 % (11.5-14.5); WBC 15.13 X 10*3/uL (4.50-10.00)
[2024-08-09] MEDS ORDERED: HYDROcodone/APAP 5-325MG 1 EACH TAB PO PRN (10:11)
--- NOTE | 2024-08-09 11:32 | CDI ---
Documentation Clarification Form Date: 08/09/2024 From: Priyanka [email or web address] Email: [email or web address] Admit Date: 08/06/2024 08:20:00 PM Patient Name: Vazquez Angelo Visit Number: [id number] Discharge Date: N/A ATTENTION: The Clinical Documentation Specialists (CDI) and [facility] Coding Staff appreciate your assistance in clarifying documentation. Please respond to the clarification below the line at the bottom and electronically sign. The CDI & [facility] Coding staff will review the response and follow-up if needed. Please note: Queries are made part of the Legal Health Record. If you have any questions, please contact the author of this message via ITS. Dr. Willi Shoemaker, Sepsis is documented in the Infectious Disease Consult Note on 08/07/2024 but is not consistently noted in previous and/or subsequent documentation. Clarification is requested. History/Risk Factors: 53-year-old male presented to [facility] for evaluation due to abdominal pain and fever. PMH: Hypertension, former smoker, rectal bleeding/polyps Clinical Indicators: v Documentation Location: Electronic Medical Record Vital Sign Trend: Date Time Temperature HR RR BP SpO2 08/06/2024 17:12 100.0 F (Oral) 133 20 120/84 99% on Room Air 08/06/2024 20:49 100.5 F (Oral) 112 18 N/A N/A 08/07/2024 07:20 98.5 F (Oral) 103 16 130/89 97% on 2L NC 08/08/2024 07:04 97.9 F (Tympanic) 82 17 93/56 98% on Room Air 08/09/2024 06:57 97.9 F (Oral) 80 18 114/76 97% on Room Air Lab Results: 08/06/2024 08/07/2024 08/08/2024 08/09/2024 WBC 22.0 16.69 16.52 15.13 Other Clinical Indicators: Blood Cultures (Collected on 08/06/2024): No growth after 48 hours Lactic Acid (08/06/2024): 1.4 Peritoneal Abscess Fluid Culture (Collected 08/06/2024): Rare Escherichia coli, Rare Beta Hemolytic Streptococci Group F (Preliminary Result) Infectious Disease Consultation Note (08/07/2024): o Patient presented to the hospital with sepsis in this patient noted to have fever, tachycardia, elevated white count meeting currently for SIRS. Source is perforated diverticulitis with intra- abdominal abscess Treatment: Infectious Disease Consultation Zosyn 3.375g IVPB Every 8 Hours Lactated Ringers IV Infusion @ 130mL/hr. (Discontinued) 0.9% Sodium Chloride IV Infusion @ 130mL/hr. Surgical Intervention: Sigmoid Colon Resection with End Colostomy, Abdominal Washout Other Treatments this Admission: Acetaminophen (Ofirmev) 750mg IVPB x 1 Acetaminophen (Ofirmev) 1000mg IVPB Every 6 Hours (Received 8 Treatments) Please clarify if the sepsis is: [X ] Sepsis (present on admission) confirmed, remains under treatment [ ] Sepsis has been ruled out [ ] Other condition, please specify [ ] Unable to determine SIRS Criteria (2 or more of the following may indicate SIRS): Temperature < 96.8F (36C) or > 101.0F (38.3C) Heart Rate > 90 bpm Respiratory Rate > 20 breaths/min or PaCO2 < 32 mmHg White Blood Cell Count > 12,000 or < 4,000 cells/mm3 or > 10% bands MTDD
--- NOTE | 2024-08-09 13:20 | P.PN ---
Subjective Progress Note Date: 08/09/24 SURGICAL PROGRESS NOTE CHIEF COMPLAINT: Perforated sigmoid colon with abscess HISTORY OF PRESENT ILLNESS: Postop day#3 status post exploratory laparotomy, sigmoid colon resection with end colostomy and abdominal washout. Patient tolerated the clear liquid diet. NG tube removed last night. Ostomy is f unctioning. He does report pain at incision sites but controlled. Denies any nausea or vomiting. Veronica catheter discontinued yesterday. Patient urinating without difficulty. Afebrile. WBC down from 16-15.13 Hgb 10.2 PHYSICAL EXAM: VITAL SIGNS: Reviewed. GENERAL: Well-developed in no acute distress. ABDOMEN: Soft. Nondistended. Tender at incision site. Incisional dressing with a few small areas of shadowing. Ostomy on the left stoma beefy red with liquidy brown stool. NEUROLOGIC: Alert and oriented. Cranial nerves II through XII grossly intact. ASSESSMENT: 1. Perforated sigmoid colon with abscess PLAN: -Continue clear liquid diet -Add [place] for oral pain medication -Follow-up on pathology results -Encourage incentive spirometer use -Encourage patient to ambulate -Continue antibiotics -Discontinue IV fluids -Repeat labs in a.m. -DVT prophylaxis subcu heparin and GI prophylaxis Protonix Physician Attendant [place] note has been reviewed by physician. Signing provider agrees with the documented findings, assessment, and plan of care. Attestation Patient seen and examined at bedside. States he is beginning to have some further output from ostomy site and gas in ostomy bag. We will continue clear liquid diet for now. Awaiting pathology results. Continue to increase ac tivity. Will follow leukocytosis. Progressing slowly. Willi Shoemaker, DO Objective - Vital Signs Vital signs: Vital Signs Temp 97.9 F 08/09/24 06:57 Pulse 80 08/09/24 06:57 Resp 18 08/09/24 06:57 BP 114/76 08/09/24 06:57 Pulse Ox 97 08/09/24 06:57 FiO2 Intake & Output 08/08/24 08/09/24 08/09/24 18:59 06:59 18:59 Output Total 990 420 Balance -990 -420 Output: Gastric Drainage 500 Drainage 90 100 Abdomen 90 100 Urine 400 300 Uretheral (Veronica) 200 Stool 20 Other: Voiding Method Urinal Toilet Urinal - Labs CBC & Chem 7: 08/10/24 06:02 08/10/24 06:02 Labs: Abnormal Lab Results - Last 24 Hours (Table) 08/09/24 08/09/24 Range/Units 05:27 05:27 WBC 15.13 H (4.50-10.00) X 10*3/uL RBC 3.13 L (4.40-5.60) X 10*6/uL Hgb 10.2 L (13.0-17.0) g/dL Hct 31.0 L (39.6-50.0) % MCV 99.0 H (80.0-97.0) FL MCH 32.6 H (27.0-32.0) pg Plt Count 531 H (140-440) X 10*3/uL Immature Gran # 0.10 H (0.00-0.04) X 10*3/uL Neutrophils # 12.93 H (1.80-7.70) X 10*3/uL Lymphocytes # 0.86 L (0.90-5.00) X 10*3/uL Monocytes # 1.03 H (0.20-1.00) X 10*3/uL Calcium 8.1 L (8.7-10.3) mg/dL AST 67 H (14-35) U/L Total Protein 4.9 L (6.2-8.2) g/dL Albumin 2.4 L (3.8-4.9) g/dL Albumin/Globulin Ratio 0.96 L (1.60-3.17) Ratio Microbiology - Last 24 Hours (Table) 08/06/24 22:25 Gram Stain - Preliminary Peritoneal Fluid Body Fluid Culture - Preliminary Escherichia coli Beta Hemolytic Streptococcus F 08/06/24 18:42 Blood Culture - Preliminary Blood 08/07/24 02:44 Urine Culture - Final Urine,Voided
--- NOTE | 2024-08-09 14:23 | P.PN ---
Subjective Interval History: 53-year-old male patient with past medical history significant for hypertension, history of anemia, history of colon polyps who presented to ER with a complaint of abdominal pain. Patient reported that he was having abdominal pain for the last 4 to 5 days, symptom were fluctuating, initially were improving and got worse last night prior to coming to the ED, patient also reported intermittent fever and chills. Patient reported nausea, constipation. Patient denied any sore throat, headache, shortness of breath, chest pain, palpitations, dysuria urgency frequency weakness of numbness of the extremities. Patient had colonos copy about 8 years ago for rectal bleeding and had 3 polyps removed at that time. Patient had a fever of 100.5 in the ED was tachycardic with heart rate 112, respiratory rate 18, blood pressure 135/88, was saturating 98% on room air. WBCs were elevated 22.0 in the ED, hemoglobin 13.4, platelet 574. Sodium 131, potassium 4.6, chloride 98 CO2 23 BUN 11 creatinine 0.76, liver profile unre markable. UA was positive for 30 WBCs, small amount of leukocyte Estrace. CT abdomen pelvis showed masslike area of wall thickening of sigmoid colon with free peritoneal fluid compatible with abscess, findings could represent perforated mass versus perforated colitis with abscess formation, circumf erential wall thickening up to 10 mm of bladder. Trace ascites. Dilated appendix with mild inflammation. 08/08--patient was seen and examined today. Patient feeling better today. Pain is controlled. Output noted in the ostomy bag. MELITA drain with SS output. Afebrile, vital stable. WBCs 16.5, hemoglobin 9.8, platelet 438. BMP unremarkable. General surgery following, plan for NG tube clamping trial, with clear liquid diet today. 08/09--patient was seen and examined today. Pain is controlled, afebrile, heart rate 80, respiratory rate 18, blood pressure 114/76, saturating 97% on room air. WBCs 15.1, hemoglobin 10.2, platelet 531. BMP unremarkable. Mildly elevated AST 67. Currently on clear liquid diet per general surgery. [place] for pain control. Pathology results pending. On IV Zosyn. ID following. Assessment and plan: Perforated sigmoid colon with abscess: Presented with abdominal pain, nausea, constipation Febrile with tachycardia and leukocytosis on presentation CT abdomen pelvis showed masslike area of wall thickening of sigmoid colon with fiery peritoneal fluid compatible with abscess, concern for perforated mass versus perforated colitis with abscess formation. Status post exploratory laparotomy with sigmoid colon resection with end colostomy and abdominal washout on 08/06 Management per general surgery Was initially n.p.o. for bowel rest, was NG tube in place, plan for clamping trial with clear liquid diet today. Pain control, antiemetics. IV fluids Zosyn Blood cultures negative so far, peritoneal fluid culture growing E. coli, beta- hemolytic Streptococcus F. Infectious disease consulted Hypertension: Hold lisinopril, hydrochlorothiazide due to soft blood pressure DVT prophylaxis Subcutaneous heparin Monitor vital signs and labs Labs and medication were reviewed. Continue same treatment. Further recommendations as per clinical course of the patient PHYSICAL EXAMINATION: GENERAL: The patient is A&O x3, NAD HEENT: EOMI, Sclerae anicteric, Moist Mucous membranes Neck: Supple, Non tender, No JVD PULMONARY: Equal breath souds B/L, No wheezing, No crackles. CARDIOVASCULAR: S1, S2 present. No murmurs, rubs, or gallops. ABDOMEN: Incision intact, colostomy bag with greenish output. Generalized tenderness. MUSCULOSKELETAL: No edema, No cyanosis. No clubbing. Normal ROM. Intact peripheral pulses. NEUROLOGICAL: CN 2-12 grossly intact. No FND REVIEW OF SYSTEMS: CONSTITUTIONAL: No fever or chills. CARDIOVASCULAR: No chest pain, palpitations or syncope. PULMONARY: No shortness of breath, no cough, sore throat. GASTROINTESTINAL: No nausea, vomiting, diarrhea, abdominal pain. : No Dysuria, urgency, frequency. Extremities: No edema. NEUROLOGICAL: No headaches, no weakness, or numbness Dictation was produced using [employer] dictation software. please excuse any grammatical, word or spelling errors. Objective - Vital Signs Vital signs: Vital Signs Temp 97.9 F 08/09/24 06:57 Pulse 80 08/09/24 06:57 Resp 18 08/09/24 06:57 BP 114/76 08/09/24 06:57 Pulse Ox 97 08/09/24 06:57 FiO2 Intake & Output 08/08/24 08/09/24 08/09/24 18:59 06:59 18:59 Output Total 990 420 140 Balance -990 -420 -140 Output: Gastric Drainage 500 Drainage 90 100 Abdomen 90 100 Urine 400 300 140 Uretheral (Veronica) 200 Stool 20 Other: Voiding Method Urinal Toilet Urinal - Labs CBC & Chem 7: 08/09/24 05:27 08/09/24 05:27 Labs: Abnormal Lab Results - Last 24 Hours (Table) 08/09/24 08/09/24 Range/Units 05:27 05:27 WBC 15.13 H (4.50-10.00) X 10*3/uL RBC 3.13 L (4.40-5.60) X 10*6/uL Hgb 10.2 L (13.0-17.0) g/dL Hct 31.0 L (39.6-50.0) % MCV 99.0 H (80.0-97.0) FL MCH 32.6 H (27.0-32.0) pg Plt Count 531 H (140-440) X 10*3/uL Immature Gran # 0.10 H (0.00-0.04) X 10*3/uL Neutrophils # 12.93 H (1.80-7.70) X 10*3/uL Lymphocytes # 0.86 L (0.90-5.00) X 10*3/uL Monocytes # 1.03 H (0.20-1.00) X 10*3/uL Calcium 8.1 L (8.7-10.3) mg/dL AST 67 H (14-35) U/L Total Protein 4.9 L (6.2-8.2) g/dL Albumin 2.4 L (3.8-4.9) g/dL Albumin/Globulin Ratio 0.96 L (1.60-3.17) Ratio Microbiology - Last 24 Hours (Table) 08/06/24 22:25 Anaerobic Culture - Preliminary Other - Other 08/06/24 22:25 Gram Stain - Preliminary Peritoneal Fluid Body Fluid Culture - Preliminary Escherichia coli Beta Hemolytic Streptococcus F 08/06/24 18:42 Blood Culture - Preliminary Blood 08/07/24 02:44 Urine Culture - Final Urine,Voided
--- NOTE | 2024-08-09 15:49 | P.PN ---
Subjective Progress Note Date: 08/09/24 Principal diagnosis: Reason for follow-up is perforated diverticulitis/abscess Patient is a 53-year-old male with a past medical history significant for hypertension former smoker presenting to the hospital for evaluation of abdominal pain and has been diagnosed with perforated diverticulitis with abscess status post diverting colostomy drainage of the abscess. On today's evaluation that is 08/09/2024, the patient continues to be afebrile, the patient is on room air and breathing comfortably, the Pt denies having any chest pain or cough, the patient denies having any nausea vomiting NG has been discontinued, abdominal pain is controlled. Patient white count is 15.13, creatinine 0.9 abdominal culture with E. coli and Streptococcus Objective - Vital Signs Vital signs: Vital Signs Temp 97.9 F 08/09/24 06:57 Pulse 80 08/09/24 06:57 Resp 18 08/09/24 06:57 BP 114/76 08/09/24 06:57 Pulse Ox 97 08/09/24 06:57 FiO2 Intake & Output 08/08/24 08/09/24 08/09/24 18:59 06:59 18:59 Output Total 990 420 Balance -990 -420 Output: Gastric Drainage 500 Drainage 90 100 Abdomen 90 100 Urine 400 300 Uretheral (Veronica) 200 Stool 20 Other: Voiding Method Urinal Toilet Urinal - Exam GENERAL DESCRIPTION: Middle-age male up in bed in no distress RESPIRATORY SYSTEM: Unlabored breathing , decreased breath sounds at bases HEART: S1 S2 regular rate and rhythm , ABDOMEN: Soft , mild tenderness EXTREMITIES: No edema feet - Labs CBC & Chem 7: 08/09/24 05:27 08/09/24 05:27 Labs: Abnormal Lab Results - Last 24 Hours (Table) 08/09/24 08/09/24 Range/Units 05:27 05:27 WBC 15.13 H (4.50-10.00) X 10*3/uL RBC 3.13 L (4.40-5.60) X 10*6/uL Hgb 10.2 L (13.0-17.0) g/dL Hct 31.0 L (39.6-50.0) % MCV 99.0 H (80.0-97.0) FL MCH 32.6 H (27.0-32.0) pg Plt Count 531 H (140-440) X 10*3/uL Immature Gran # 0.10 H (0.00-0.04) X 10*3/uL Neutrophils # 12.93 H (1.80-7.70) X 10*3/uL Lymphocytes # 0.86 L (0.90-5.00) X 10*3/uL Monocytes # 1.03 H (0.20-1.00) X 10*3/uL Calcium 8.1 L (8.7-10.3) mg/dL AST 67 H (14-35) U/L Total Protein 4.9 L (6.2-8.2) g/dL Albumin 2.4 L (3.8-4.9) g/dL Albumin/Globulin Ratio 0.96 L (1.60-3.17) Ratio Microbiology - Last 24 Hours (Table) 08/06/24 22:25 Gram Stain - Preliminary Peritoneal Fluid Body Fluid Culture - Preliminary Escherichia coli Beta Hemolytic Streptococcus F 08/06/24 18:42 Blood Culture - Preliminary Blood 08/07/24 02:44 Urine Culture - Final Urine,Voided Assessment and Plan (1) Perforated sigmoid colon Current Visit: Yes Status: Acute Code(s): K63.1 - PERFORATION OF INTESTINE (NONTRAUMATIC) SNOMED Code(s): 659418536 (2) Sepsis Current Visit: Yes Status: Acute Code(s): A41.9 - SEPSIS, UNSPECIFIED ORGANISM SNOMED Code(s): 18209363 (3) Intra-abdominal abscess Current Visit: Yes Status: Acute Code(s): K65.1 - PERITONEAL ABSCESS SNOMED Code(s): 31658617 Plan: 1patient presented hospital with sepsis in this patient noted to have fever tachycardia elevated white count meeting currently for SIRS source is perforated diverticulitis with intra-abdominal abscess status post sigmoid colectomy and diverting colostomy there was concern for some circumferential wall thickening of the bladder but no clear indication of any colovesical fistula reported on the operative report 2-patient abdominal culture has been finalized with strep and E. coli sensitive to Zosyn to continue and monitor clinical course closely Dictation was produced using [employer] dictation software. please excuse any grammatical, word or spelling errors. Time with Patient: Less than 30
[2024-08-09] MEDS ORDERED: HYDROmorphone 2 MG/ML 1 ML SYRINGE IVP PRN (19:02)
[2024-08-10 09:44] LABS: Basophils # (A) 0.08 X 10*3/uL (0.00-0.10); Basophils % (A) 0.6 %; Eosinophils # (A) 0.19 X 10*3/uL (0.04-0.35); Eosinophils % (A) 1.4 %; HCT 33.4 % (39.6-50.0); HGB 10.9 g/dL (13.0-17.0); Lymphocytes # (A) 1.16 X 10*3/uL (0.90-5.00); Lymphocytes % (A) 8.5 %; MCH 32.2 pg (27.0-32.0); MCHC 32.6 g/dL (32.0-37.0); MCV 98.8 FL (80.0-97.0); Mean Platelet Volume 9.4 FL (9.5-12.2); Monocytes # (A) 1.12 X 10*3/uL (0.20-1.00); Monocytes % (A) 8.2 %; NRBC Per 100 WBC 0 X 10*3/uL (0.00-0.01); Neutrophils # (A) 10.91 X 10*3/uL (1.80-7.70); Neutrophils % (A) 80.3 %; Platelet Count 644 X 10*3/uL (140-440); RBC 3.38 X 10*6/uL (4.40-5.60); RDW 14.6 % (11.5-14.5); WBC 13.59 X 10*3/uL (4.50-10.00)
[2024-08-10 09:54] LABS: BUN/Creat Ratio 18.25 Ratio (12.00-20.00); Blood Urea Nitrogen 14.6 mg/dL (9.0-27.0); Calcium 8.1 mg/dL (8.7-10.3); Carbon Dioxide 18.5 mmol/L (21.6-31.8); Chloride 102 mmol/L (96-109); Glucose 68 mg/dL (70-110); Magnesium 1.6 mg/dL (1.5-2.4); Potassium 4.3 mmol/L (3.5-5.5); Sodium 133 mmol/L (135-145)
[2024-08-10 10:25] LABS: Phosphorus 2.9 mg/dL (2.4-5.1)
--- NOTE | 2024-08-10 11:31 | P.PN ---
Subjective Progress Note Date: 08/10/24 Patient seen and examined at bedside. Doing well. Pain controlled. Ostomy continues to have output. Objective - Vital Signs Vital signs: Vital Signs Temp 97.7 F 08/10/24 07:15 Pulse 77 08/10/24 07:15 Resp 18 08/10/24 07:15 BP 112/72 08/10/24 07:15 Pulse Ox 95 08/10/24 07:15 FiO2 Intake & Output 08/09/24 08/10/24 08/10/24 18:59 06:59 18:59 Output Total 420 190 Balance -420 -190 Output: Drainage 130 40 Abdomen 130 40 Urine 290 150 Other: Voiding Method Toilet # Voids 1 - Constitutional General appearance: Present: cooperative, no acute distress - Gastrointestinal Gastrointestinal Comment(s): Midline incision site with surgical dressing in place, ostomy functioning, MELITA drain with serosanguineous - Psychiatric Psychiatric: Present: A&O x's 3 - Labs CBC & Chem 7: 08/10/24 06:02 08/10/24 06:02 Labs: Abnormal Lab Results - Last 24 Hours (Table) 08/10/24 08/10/24 Range/Units 06:02 06:02 WBC 13.59 H (4.50-10.00) X 10*3/uL RBC 3.38 L (4.40-5.60) X 10*6/uL Hgb 10.9 L (13.0-17.0) g/dL Hct 33.4 L (39.6-50.0) % MCV 98.8 H (80.0-97.0) FL MCH 32.2 H (27.0-32.0) pg RDW 14.6 H (11.5-14.5) % Plt Count 644 H (140-440) X 10*3/uL MPV 9.4 L (9.5-12.2) FL Immature Gran # 0.13 H (0.00-0.04) X 10*3/uL Neutrophils # 10.91 H (1.80-7.70) X 10*3/uL Monocytes # 1.12 H (0.20-1.00) X 10*3/uL Sodium 133 L (135-145) mmol/L Carbon Dioxide 18.5 L (21.6-31.8) mmol/L Anion Gap 12.50 H (4.00-12.00) mmol/L Glucose 68 L (70-110) mg/dL Calcium 8.1 L (8.7-10.3) mg/dL Microbiology - Last 24 Hours (Table) 08/06/24 22:25 Gram Stain - Final Peritoneal Fluid Body Fluid Culture - Final Escherichia coli Beta Hemolytic Streptococcus F 08/06/24 18:42 Blood Culture - Preliminary Blood 08/06/24 22:25 Anaerobic Culture - Preliminary Other - Other Assessment and Plan Plan: Postop, exploratory laparotomy and Mackay's procedure. Ostomy is functioning. We will advance patient's diet today. Continue to increase activity. Continue MELITA drain for now. Leukocytosis downward trending. Continue IV antibiotics.
--- NOTE | 2024-08-10 14:47 | P.PN ---
Subjective Progress Note Date: 08/10/24 Principal diagnosis: Reason for follow-up is perforated diverticulitis/abscess Patient is a 53-year-old male with a past medical history significant for hypertension former smoker presenting to the hospital for evaluation of abdominal pain and has been diagnosed with perforated diverticulitis with abscess status post diverting colostomy drainage of the abscess. On today's evaluation that is 08/10/2024, patient did not have any fever and denies any chills, patient is breathing comfortably on room air, patient with no chest pain or cough patient did not have any nausea vomiting did have output in his colostomy tolerating his diet. Patient white count is down to 13.59, creatinine 0.8 cultures with E. coli strep and anaerobe Objective - Vital Signs Vital signs: Vital Signs Temp 97.7 F 08/10/24 07:15 Pulse 77 08/10/24 07:15 Resp 18 08/10/24 07:15 BP 112/72 08/10/24 07:15 Pulse Ox 95 08/10/24 07:15 FiO2 Intake & Output 08/09/24 08/10/24 08/10/24 18:59 06:59 18:59 Output Total 420 190 Balance -420 -190 Output: Drainage 130 40 Abdomen 130 40 Urine 290 150 Other: Voiding Method Toilet # Voids 1 - Exam GENERAL DESCRIPTION: Middle-age male up in bed in no distress RESPIRATORY SYSTEM: Unlabored breathing , decreased breath sounds at bases HEART: S1 S2 regular rate and rhythm , ABDOMEN: Soft , mild tenderness EXTREMITIES: No edema feet - Labs CBC & Chem 7: 08/10/24 06:02 08/10/24 06:02 Labs: Abnormal Lab Results - Last 24 Hours (Table) 08/10/24 08/10/24 Range/Units 06:02 06:02 WBC 13.59 H (4.50-10.00) X 10*3/uL RBC 3.38 L (4.40-5.60) X 10*6/uL Hgb 10.9 L (13.0-17.0) g/dL Hct 33.4 L (39.6-50.0) % MCV 98.8 H (80.0-97.0) FL MCH 32.2 H (27.0-32.0) pg RDW 14.6 H (11.5-14.5) % Plt Count 644 H (140-440) X 10*3/uL MPV 9.4 L (9.5-12.2) FL Immature Gran # 0.13 H (0.00-0.04) X 10*3/uL Neutrophils # 10.91 H (1.80-7.70) X 10*3/uL Monocytes # 1.12 H (0.20-1.00) X 10*3/uL Sodium 133 L (135-145) mmol/L Carbon Dioxide 18.5 L (21.6-31.8) mmol/L Anion Gap 12.50 H (4.00-12.00) mmol/L Glucose 68 L (70-110) mg/dL Calcium 8.1 L (8.7-10.3) mg/dL Microbiology - Last 24 Hours (Table) 08/06/24 22:25 Gram Stain - Final Peritoneal Fluid Body Fluid Culture - Final Escherichia coli Beta Hemolytic Streptococcus F 08/06/24 18:42 Blood Culture - Preliminary Blood 08/06/24 22:25 Anaerobic Culture - Preliminary Other - Other Assessment and Plan (1) Perforated sigmoid colon Current Visit: Yes Status: Acute Code(s): K63.1 - PERFORATION OF INTESTINE (NONTRAUMATIC) SNOMED Code(s): 858826751 (2) Sepsis Current Visit: Yes Status: Acute Code(s): A41.9 - SEPSIS, UNSPECIFIED ORGANISM SNOMED Code(s): 97772404 (3) Intra-abdominal abscess Current Visit: Yes Status: Acute Code(s): K65.1 - PERITONEAL ABSCESS SNOMED Code(s): 59904376 Plan: 1patient presented hospital with sepsis in this patient noted to have fever tachycardia elevated white count meeting currently for SIRS source is perforated diverticulitis with intra-abdominal abscess status post sigmoid colectomy and diverting colostomy there was concern for some circumferential wall thickening of the bladder but no clear indication of any colovesical fistula reported on the operative report 2-patient abdominal culture has been finalized with strep anaerobe and E. coli sensitive to Zosyn 3patient is afebrile white count is trending down we will continue with the Zosyn while inpatient Dictation was produced using [employer] dictation software. please excuse any grammatical, word or spelling errors. Time with Patient: Less than 30
--- NOTE | 2024-08-10 14:54 | P.PN ---
Subjective Progress Note Date: 08/10/24 53-year-old male patient with past medical history significant for hypertension, history of anemia, history of colon polyps who presented to ER with a complaint of abdominal pain. Patient reported that he was having abdominal pain for the last 4 to 5 days, symptom were fluctuating, initially were improving and got worse last night prior to coming to the ED, patient also reported intermittent fever and chills. Patient reported nausea, constipation. Patient denied any sore throat, headache, shortness of breath, chest pain, palpitations, dysuria urgency frequency weakness of numbness of the extremities. Patient had colonoscopy about 8 years ago for rectal bleeding and had 3 polyps removed at that time. Patient had a fever of 100.5 in the ED was tachycardic with heart rate 112, respiratory rate 18, blood pressure 135/88, was saturating 98% on room air. WBCs were elevated 22.0 in the ED, hemoglobin 13.4, platelet 574. Sodium 131, potassium 4.6, chloride 98 CO2 23 BUN 11 creatinine 0.76, liver profile unremarkable. UA was positive for 30 WBCs, small amount of leukocyte Estrace. CT abdomen pelvis showed masslike area of wall thickening of sigmoid colon with free peritoneal fluid compatible with abscess, findings could represent perforated mass versus perforated colitis with abscess formation, circumferential wall thickening up to 10 mm of bladder. Trace ascites. Dilated appendix with mild inflammation. 08/08--patient was seen and examined today. Patient feeling better today. Pain is controlled. Output noted in the ostomy bag. MELITA drain with SS output. Afebrile, vital stable. WBCs 16.5, hemoglobin 9.8, platelet 438. BMP unremarkable. General surgery following, plan for NG tube clamping trial, with clear liquid diet today. 08/09--patient was seen and examined today. Pain is controlled, afebrile, heart rate 80, respiratory rate 18, blood pressure 114/76, saturating 97% on room air. WBCs 15.1, hemoglobin 10.2, platelet 531. BMP unremarkable. Mildly elevated AST 67. Currently on clear liquid diet per general surgery. [place] for pain control. Pathology results pending. On IV Zosyn. ID following. 08/10. Patient seen and examined. Labs done this morning showed WBC 13.59, hemoglobin 10.9, platelet count 644, sodium 133, potassium 4.3, BUN 14.6, creatinine 0.8. Continues to be afebrile. Currently on clear liquid diet, diet advanced to full liquid by surgery REVIEW OF SYSTEMS: CONSTITUTIONAL: No fever, no malaise,. CARDIOVASCULAR: No chest pain, no palpitations, no syncope. PULMONARY: No shortness of breath, no cough, GASTROINTESTINAL: No diarrhea, no nausea, no vomiting, no abdominal pain. NEUROLOGICAL: No headaches, no weakness, PHYSICAL EXAMINATION: GENERAL: The patient is alert and oriented x3, not in any acute distress. Well developed, well nourished. HEENT: Pupils are round and equally reacting to light. EOMI. No scleral icterus. No conjunctival pallor. Normocephalic, atraumatic. No pharyngeal erythema. No thyromegaly. CARDIOVASCULAR: S1 and S2 present. No murmurs, rubs, or gallops. PULMONARY: Chest is clear to auscultation, no wheezing or crackles. ABDOMEN: Soft, surgical incision seen no erythema, ostomy seen MUSCULOSKELETAL: No joint swelling or deformity. EXTREMITIES: No cyanosis, clubbing, or pedal edema. NEUROLOGICAL: Gross neurological examination did not reveal any focal deficits. SKIN: No rashes. Assessment and plan Perforated sigmoid colon with abscess: Presented with abdominal pain, nausea, constipation Febrile with tachycardia and leukocytosis on presentation CT abdomen pelvis showed masslike area of wall thickening of sigmoid colon with fiery peritoneal fluid compatible with abscess, concern for perforated mass versus perforated colitis with abscess formation. Status post exploratory laparotomy with sigmoid colon resection with end colostomy and abdominal washout on 08/06 Management per general surgery diet advanced to full Pain control, antiemetics. IV fluids Zosyn Blood cultures negative so far, peritoneal fluid culture growing E. coli, beta- hemolytic Streptococcus F. Infectious disease on board, appreciate their recommendation Hypertension: Hold lisinopril, hydrochlorothiazide due to soft blood pressure Labs and medication were reviewed.. Continue same treatment. Continue with s ymptomatic treatment. Resume home medication. Monitor labs and vitals. DVT and GI prophylaxis. Further recommendations as per clinical course of the patient Dictation was produced using [employer] dictation software. please excuse any grammatical, word or spelling errors. Objective - Vital Signs Vital signs: Vital Signs Temp 97.7 F 08/10/24 07:15 Pulse 77 08/10/24 07:15 Resp 18 08/10/24 07:15 BP 112/72 08/10/24 07:15 Pulse Ox 95 08/10/24 07:15 FiO2 Intake & Output 08/09/24 08/10/24 08/10/24 18:59 06:59 18:59 Output Total 420 190 Balance -420 -190 Output: Drainage 130 40 Abdomen 130 40 Urine 290 150 Other: Voiding Method Toilet # Voids 1 - Labs CBC & Chem 7: 08/10/24 06:02 08/10/24 06:02 Labs: Abnormal Lab Results - Last 24 Hours (Table) 08/10/24 08/10/24 Range/Units 06:02 06:02 WBC 13.59 H (4.50-10.00) X 10*3/uL RBC 3.38 L (4.40-5.60) X 10*6/uL Hgb 10.9 L (13.0-17.0) g/dL Hct 33.4 L (39.6-50.0) % MCV 98.8 H (80.0-97.0) FL MCH 32.2 H (27.0-32.0) pg RDW 14.6 H (11.5-14.5) % Plt Count 644 H (140-440) X 10*3/uL MPV 9.4 L (9.5-12.2) FL Immature Gran # 0.13 H (0.00-0.04) X 10*3/uL Neutrophils # 10.91 H (1.80-7.70) X 10*3/uL Monocytes # 1.12 H (0.20-1.00) X 10*3/uL Sodium 133 L (135-145) mmol/L Carbon Dioxide 18.5 L (21.6-31.8) mmol/L Anion Gap 12.50 H (4.00-12.00) mmol/L Glucose 68 L (70-110) mg/dL Calcium 8.1 L (8.7-10.3) mg/dL Microbiology - Last 24 Hours (Table) 08/06/24 22:25 Gram Stain - Final Peritoneal Fluid Body Fluid Culture - Final Escherichia coli Beta Hemolytic Streptococcus F 08/06/24 18:42 Blood Culture - Preliminary Blood 08/06/24 22:25 Anaerobic Culture - Preliminary Other - Other
--- NOTE | 2024-08-11 09:01 | P.PN ---
Subjective Progress Note Date: 08/11/24 Patient seen and examined at bedside. States pain is controlled. Tolerating soft diet. Continues to have ostomy output. Objective - Vital Signs Vital signs: Vital Signs Temp 98.5 F 08/11/24 07:35 Pulse 73 08/11/24 07:35 Resp 18 08/11/24 07:35 BP 131/73 08/11/24 07:35 Pulse Ox 97 08/11/24 07:35 FiO2 Intake & Output 08/10/24 08/11/24 08/11/24 18:59 06:59 18:59 Intake Total 500 Output Total 20 1190 Balance -20 -690 Intake: Oral 500 Output: Drainage 20 40 Abdomen 20 10 Left Abdomen 30 Urine 1150 Other: Voiding Method Toilet # Voids 2 0 # Bowel Movements 1 - Constitutional General appearance: Present: cooperative, no acute distress - Respiratory Details: No difficulty with respiration - Gastrointestinal Gastrointestinal Comment(s): Soft, appropriate tenderness around incision site, midline incision with beatriz in place, ostomy functioning, MELITA drain in place with serosanguineous output - Psychiatric Psychiatric: Present: A&O x's 3 - Labs CBC & Chem 7: 08/10/24 06:02 08/10/24 06:02 Labs: Abnormal Lab Results - Last 24 Hours (Table) 08/10/24 08/10/24 Range/Units 06:02 06:02 WBC 13.59 H (4.50-10.00) X 10*3/uL RBC 3.38 L (4.40-5.60) X 10*6/uL Hgb 10.9 L (13.0-17.0) g/dL Hct 33.4 L (39.6-50.0) % MCV 98.8 H (80.0-97.0) FL MCH 32.2 H (27.0-32.0) pg RDW 14.6 H (11.5-14.5) % Plt Count 644 H (140-440) X 10*3/uL MPV 9.4 L (9.5-12.2) FL Immature Gran # 0.13 H (0.00-0.04) X 10*3/uL Neutrophils # 10.91 H (1.80-7.70) X 10*3/uL Monocytes # 1.12 H (0.20-1.00) X 10*3/uL Sodium 133 L (135-145) mmol/L Carbon Dioxide 18.5 L (21.6-31.8) mmol/L Anion Gap 12.50 H (4.00-12.00) mmol/L Glucose 68 L (70-110) mg/dL Calcium 8.1 L (8.7-10.3) mg/dL Microbiology - Last 24 Hours (Table) 08/06/24 22:25 Anaerobic Culture - Preliminary Other - Other Anaerobic Gm Negative Bacilli 08/06/24 22:25 Gram Stain - Final Peritoneal Fluid Body Fluid Culture - Final Escherichia coli Beta Hemolytic Streptococcus F 08/06/24 18:42 Blood Culture - Preliminary Blood Assessment and Plan Plan: Postop, exploratory laparotomy and Mackay's procedure. Ostomy is functioning. Tolerating soft diet. Recommended continue to increase activity. Continue IV antibiotics. Likely discharge tomorrow after patient is comfortable with ostomy care. Appreciate medical recommendations.
--- NOTE | 2024-08-11 13:10 | P.PN ---
Subjective Progress Note Date: 08/11/24 53-year-old male patient with past medical history significant for hypertension, history of anemia, history of colon polyps who presented to ER with a complaint of abdominal pain. Patient reported that he was having abdominal pain for the last 4 to 5 days, symptom were fluctuating, initially were improving and got worse last night prior to coming to the ED, patient also reported intermittent fever and chills. Patient reported nausea, constipation. Patient denied any sore throat, headache, shortness of breath, chest pain, palpitations, dysuria urgency frequency weakness of numbness of the extremities. Patient had colonoscopy about 8 years ago for rectal bleeding and had 3 polyps removed at that time. Patient had a fever of 100.5 in the ED was tachycardic with heart rate 112, respiratory rate 18, blood pressure 135/88, was saturating 98% on room air. WBCs were elevated 22.0 in the ED, hemoglobin 13.4, platelet 574. Sodium 131, potassium 4.6, chloride 98 CO2 23 BUN 11 creatinine 0.76, liver profile unremarkable. UA was positive for 30 WBCs, small amount of leukocyte Estrace. CT abdomen pelvis showed masslike area of wall thickening of sigmoid colon with free peritoneal fluid compatible with abscess, findings could represent perforated mass versus perforated colitis with abscess formation, circumferential wall thickening up to 10 mm of bladder. Trace ascites. Dilated appendix with mild inflammation. 08/08--patient was seen and examined today. Patient feeling better today. Pain is controlled. Output noted in the ostomy bag. MELITA drain with SS output. Afebrile, vital stable. WBCs 16.5, hemoglobin 9.8, platelet 438. BMP unremarkable. General surgery following, plan for NG tube clamping trial, with clear liquid diet today. 08/09--patient was seen and examined today. Pain is controlled, afebrile, heart rate 80, respiratory rate 18, blood pressure 114/76, saturating 97% on room air. WBCs 15.1, hemoglobin 10.2, platelet 531. BMP unremarkable. Mildly elevated AST 67. Currently on clear liquid diet per general surgery. [place] for pain control. Pathology results pending. On IV Zosyn. ID following. 08/10. Patient seen and examined. Labs done this morning showed WBC 13.59, hemoglobin 10.9, platelet count 644, sodium 133, potassium 4.3, BUN 14.6, creatinine 0.8. Continues to be afebrile. Currently on clear liquid diet, diet advanced to full liquid by surgery 08/11. Patient seen and examined. Diet advanced to soft diet. Denies any abdominal pain. Denies any nausea or vomiting. REVIEW OF SYSTEMS: CONSTITUTIONAL: No fever, no malaise,. CARDIOVASCULAR: No chest pain, no palpitations, no syncope. PULMONARY: No shortness of breath, no cough, GASTROINTESTINAL: No diarrhea, no nausea, no vomiting, no abdominal pain. NEUROLOGICAL: No headaches, no weakness, PHYSICAL EXAMINATION: GENERAL: The patient is alert and oriented x3, not in any acute distress. Well developed, well nourished. HEENT: Pupils are round and equally reacting to light. EOMI. No scleral icterus. No conjunctival pallor. Normocephalic, atraumatic. No pharyngeal erythema. No thyromegaly. CARDIOVASCULAR: S1 and S2 present. No murmurs, rubs, or gallops. PULMONARY: Chest is clear to auscultation, no wheezing or crackles. ABDOMEN: Soft, surgical incision seen no erythema, ostomy seen MUSCULOSKELETAL: No joint swelling or deformity. EXTREMITIES: No cyanosis, clubbing, or pedal edema. NEUROLOGICAL: Gross neurological examination did not reveal any focal deficits. SKIN: No rashes. Assessment and plan Perforated sigmoid colon with abscess: Presented with abdominal pain, nausea, constipation Febrile with tachycardia and leukocytosis on presentation CT abdomen pelvis showed masslike area of wall thickening of sigmoid colon with fiery peritoneal fluid compatible with abscess, concern for perforated mass versus perforated colitis with abscess formation. Status post exploratory laparotomy with sigmoid colon resection with end colostomy and abdominal washout on 08/06 Management per general surgery diet advanced to soft Pain control, antiemetics. Zosyn Blood cultures negative so far, peritoneal fluid culture growing E. coli, beta- hemolytic Streptococcus F. Infectious disease on board, appreciate their recommendation Hypertension: Hold lisinopril, hydrochlorothiazide due to soft blood pressure Labs and medication were reviewed.. Continue same treatment. Continue with symptomatic treatment. Resume home medication. Monitor labs and vitals. DVT and GI prophylaxis. Further recommendations as per clinical course of the patient Dictation was produced using [employer] dictation software. please excuse any grammatical, word or spelling errors. Objective - Vital Signs Vital signs: Vital Signs Temp 98.5 F 08/11/24 07:35 Pulse 73 08/11/24 07:35 Resp 18 08/11/24 07:35 BP 131/73 08/11/24 07:35 Pulse Ox 97 08/11/24 07:35 FiO2 Intake & Output 08/10/24 08/11/24 08/11/24 18:59 06:59 18:59 Intake Total 500 Output Total 20 1190 Balance -20 -690 Intake: Oral 500 Output: Drainage 20 40 Abdomen 20 10 Left Abdomen 30 Urine 1150 Other: Voiding Method Toilet # Voids 2 0 # Bowel Movements 1 - Labs CBC & Chem 7: 08/10/24 06:02 08/10/24 06:02 Labs: Microbiology - Last 24 Hours (Table) 08/06/24 22:25 Anaerobic Culture - Final Other - Other Anaerobic Gm Negative Bacilli 08/06/24 22:25 Gram Stain - Final Peritoneal Fluid Body Fluid Culture - Final Escherichia coli Beta Hemolytic Streptococcus F
--- NOTE | 2024-08-11 13:17 | P.PN ---
Subjective Progress Note Date: 08/11/24 Principal diagnosis: Reason for follow-up is perforated diverticulitis/abscess Patient is a 53-year-old male with a past medical history significant for hypertension former smoker presenting to the hospital for evaluation of abdominal pain and has been diagnosed with perforated diverticulitis with abscess status post diverting colostomy drainage of the abscess. On today's evaluation that is 08/11/2024, Patient is afebrile patient is currently on room air and denies having any shortness of breath, the patient denies any chest pain or cough, the patient denies any nausea vomiting abdominal pain is currently controlled and did have output in his colostomy. No new labs were drawn today cultures with E. coli and strep and anaerobe Objective - Vital Signs Vital signs: Vital Signs Temp 98.5 F 08/11/24 07:35 Pulse 73 08/11/24 07:35 Resp 18 08/11/24 07:35 BP 131/73 08/11/24 07:35 Pulse Ox 97 08/11/24 07:35 FiO2 Intake & Output 08/10/24 08/11/24 08/11/24 18:59 06:59 18:59 Intake Total 500 Output Total 20 1190 Balance -20 -690 Intake: Oral 500 Output: Drainage 20 40 Abdomen 20 10 Left Abdomen 30 Urine 1150 Other: Voiding Method Toilet # Voids 2 0 # Bowel Movements 1 - Exam GENERAL DESCRIPTION: Middle-age male up in bed in no distress RESPIRATORY SYSTEM: Unlabored breathing , decreased breath sounds at bases HEART: S1 S2 regular rate and rhythm , ABDOMEN: Soft , mild tenderness EXTREMITIES: No edema feet - Labs CBC & Chem 7: 08/10/24 06:02 08/10/24 06:02 Labs: Microbiology - Last 24 Hours (Table) 08/06/24 22:25 Anaerobic Culture - Final Other - Other Anaerobic Gm Negative Bacilli 08/06/24 22:25 Gram Stain - Final Peritoneal Fluid Body Fluid Culture - Final Escherichia coli Beta Hemolytic Streptococcus F Assessment and Plan (1) Perforated sigmoid colon Current Visit: Yes Status: Acute Code(s): K63.1 - PERFORATION OF INTESTINE (NONTRAUMATIC) SNOMED Code(s): 137910355 (2) Sepsis Current Visit: Yes Status: Acute Code(s): A41.9 - SEPSIS, UNSPECIFIED ORGANISM SNOMED Code(s): 03499924 (3) Intra-abdominal abscess Current Visit: Yes Status: Acute Code(s): K65.1 - PERITONEAL ABSCESS SNOMED Code(s): 72103341 Plan: 1patient presented hospital with sepsis in this patient noted to have fever tachycardia elevated white count meeting currently for SIRS source is perforated diverticulitis with intra-abdominal abscess status post sigmoid colectomy and diverting colostomy there was concern for some circumferential wall thickening of the bladder but no clear indication of any colovesical fistula reported on the operative report 2-patient abdominal culture has been finalized with strep anaerobe and E. coli sensitive to Zosyn 3patient is afebrile white count down to 13,000 yesterday no CBC done today will repeat CBC with a.m. lab continue Zosyn will be able to transition to antibiotics on discharge Dictation was produced using [employer] dictation software. please excuse any grammatical, word or spelling errors. Time with Patient: Less than 30
[2024-08-12 08:17] LABS: Basophils # (A) 0.07 X 10*3/uL (0.00-0.10); Basophils % (A) 0.6 %; Eosinophils # (A) 0.18 X 10*3/uL (0.04-0.35); Eosinophils % (A) 1.7 %; HCT 28.7 % (39.6-50.0); HGB 9.5 g/dL (13.0-17.0); Lymphocytes # (A) 1.62 X 10*3/uL (0.90-5.00); Lymphocytes % (A) 14.9 %; MCH 32.9 pg (27.0-32.0); MCHC 33.1 g/dL (32.0-37.0); MCV 99.3 FL (80.0-97.0); Mean Platelet Volume 9.5 FL (9.5-12.2); Monocytes # (A) 1.46 X 10*3/uL (0.20-1.00); Monocytes % (A) 13.4 %; NRBC Per 100 WBC 0 X 10*3/uL (0.00-0.01); Neutrophils # (A) 7.18 X 10*3/uL (1.80-7.70); Neutrophils % (A) 66.1 %; Platelet Count 679 X 10*3/uL (140-440); RBC 2.89 X 10*6/uL (4.40-5.60); RDW 15.2 % (11.5-14.5); WBC 10.87 X 10*3/uL (4.50-10.00)
[2024-08-12 08:21] VITALS: BP 124/78; PULSE 65; RESP 16; TEMP 97.7
[2024-08-12 08:44] LABS: ALT 16 U/L (10-49); AST 32 U/L (14-35); Albumin 2.3 g/dL (3.8-4.9); Albumin/Globulin Ratio 0.92 Ratio (1.60-3.17); Alkaline Phosphatase 120 U/L (41-126); BUN/Creat Ratio 11.43 Ratio (12.00-20.00); Calcium 7.9 mg/dL (8.7-10.3); Carbon Dioxide 21.4 mmol/L (21.6-31.8); Chloride 104 mmol/L (96-109); Globulin 2.5 g/dL (1.6-3.3); Glucose 98 mg/dL (70-110); Potassium 3.6 mmol/L (3.5-5.5); Sodium 134 mmol/L (135-145); Total Bilirubin <0.2 mg/dL (0.3-1.2); Total Protein 4.8 g/dL (6.2-8.2)
--- NOTE | 2024-08-12 11:43 | P.DS ---
Providers Date of admission: 08/06/24 20:20 Expected date of discharge: 08/12/24 Attending physician: Michoacano Wood DO Consults: 08/06/24 20:46 Consult Physician Routine Consulting Provider: Abigail Harmon Consult Reason/Comments: Medical Management s/p Ex Lap Do you want consulting provider notified?: Yes 08/07/24 10:07 Consult Physician Routine Consulting Provider: Nilesh Stephen Consult Reason/Comments: sepsis, abd abscess, perf colon Do you want consulting provider notified?: Yes Primary care physician: Robby Dave Hospital Course: Discharge diagnosis 1. Perforated sigmoid colon with abscess Hospital course This is a 53-year-old male who presented with abdominal pain. CT scan abdomen pelvis that reported perforated sigmoid colon with abscess. Patient is status post exploratory laparotomy with sigmoid colon resection and end colostomy with abdominal washout. Patient tolerated surgery well. His pain is controlled. He is afebrile. His ostomy is functioning. His white count has trended down. He has been up and ambulating. He is tolerating diet. He is stable for discharge. He will be discharged with antibiotics and his MELITA drain. Please refer to chart for any further details. Physician Yarding Engineer note has been reviewed by physician. Signing provider agrees with the documented findings, assessment, and plan of care. Attestation Patient seen and examined at bedside. Presented with concern for sepsis secondary to perforated sigmoid colon and did undergo Mackay's procedure. He has progressed really well since his surgery. White count has been downward trending. MELITA drain output has been monitored and is mostly serosanguineous. Tolerating diet. Having ostomy function. Ostomy appliances were provided to patient with case management planning for outpatient follow-up. He has had ostomy education along with his . Plan for discharge on antibiotics with MELITA drain in place with removal in the office. Willi Shoemaker DO Patient Condition at Discharge: Stable Plan - Discharge Summary Discharge Rx Participant: Yes New Discharge Prescriptions: New HYDROcodone/APAP 5-325MG [Pride 5-325] 1 tab PO Q6HR PRN 3 Days #12 tab PRN Reason: Pain Acetaminophen Tab [Tylenol Tab] 650 mg PO Q4H PRN #30 tablet PRN Reason: Pain cefuroxime axetiL [Ceftin] 500 mg PO BID #20 tab metroNIDAZOLE [Flagyl] 500 mg PO TID 10 Days #30 tab Continue Lisinopril-Hctz 20-25 mg [Zestoretic 20-25] 1 tab PO DAILY Ibuprofen [Motrin] 800 mg PO TID PRN PRN Reason: Pain Discharge Medication List Lisinopril-Hctz 20-25 mg [Zestoretic 20-25] 1 tab PO DAILY 09/19/18 [History] Ibuprofen [Motrin] 800 mg PO TID PRN 08/06/24 [History] Acetaminophen Tab [Tylenol Tab] 650 mg PO Q4H PRN #30 tablet 08/12/24 [Rx] HYDROcodone/APAP 5-325MG [Pride 5-325] 1 tab PO Q6HR PRN 3 Days #12 tab 08/12/24 [Rx] cefuroxime axetiL [Ceftin] 500 mg PO BID #20 tab 08/12/24 [Rx] metroNIDAZOLE [Flagyl] 500 mg PO TID 10 Days #30 tab 08/12/24 [Rx] Follow up Appointment(s)/Referral(s): Robby Dave MD [Primary Care Provider] - 08/16/24 11:00 am [facility], [NON-STAFF] - As Needed ([facility] will call you to schedule your in home nursing visits. ) Michoacano Wood DO [Medical Doctor] - 08/20/24 10:45 am (With [facility]) Activity/Diet/Wound Care/Special Instructions: Ostomy: Choco convex 1 piece #[id number]; non sting skin prep, ostomy deodorant; change every 3 to 5 days and if leaking; empty when half full Last changed: 08/12/24 Apply stoma powder to area of seperation of stoma from suture line at 9 o'clock; apply skin prep to peristomal skin. Apply skin prep-stoma powder-skin prep in crusting technique to scabbed area of peristomal skin at approximately 10 o'clock. No driving while taking Pride No lifting over 10 pounds You may shower. No soaking or tub baths for 2 weeks Very light activity until you are reevaluated at your follow up appointment with your surgeon Keep a log of MELITA drain output and bring with you to your follow-up appointment Milk/strip drains 2-3 times a day Discharge Disposition: HOME WITH HOME HEALTH SERVICES
--- NOTE | 2024-08-12 11:49 | P.PN ---
Subjective Progress Note Date: 08/12/24 Principal diagnosis: Reason for follow-up is perforated diverticulitis/abscess Patient is a 53-year-old male with a past medical history significant for hypertension former smoker presenting to the hospital for evaluation of abdominal pain and has been diagnosed with perforated diverticulitis with abscess status post diverting colostomy drainage of the abscess. On today's evaluation that is 08/12/2024, patient has been afebrile, patient is breathing comfortably and is currently on room air, patient denies having any chest pain and cough, patient denies nausea vomiting abdominal pain is currently controlled he did have output in his colostomy. Patient white count is down to 10.87, creatinine 0.7 abdominal culture with group F strep and E. coli and anaerobe Objective - Vital Signs Vital signs: Vital Signs Temp 97.7 F 08/12/24 07:24 Pulse 65 08/12/24 07:24 Resp 16 08/12/24 07:24 BP 124/78 08/12/24 07:24 Pulse Ox 98 08/12/24 07:24 FiO2 Intake & Output 08/11/24 08/12/24 08/12/24 18:59 06:59 18:59 Output Total 1135 Balance -1135 Output: Drainage 35 Abdomen 35 Urine 1100 Other: Voiding Method Toilet Urinal # Voids 3 # Bowel Movements 1 - Exam GENERAL DESCRIPTION: Middle-age male up in bed in no distress RESPIRATORY SYSTEM: Unlabored breathing , decreased breath sounds at bases HEART: S1 S2 regular rate and rhythm , ABDOMEN: Soft , mild tenderness EXTREMITIES: No edema feet - Labs CBC & Chem 7: 08/12/24 03:51 08/12/24 03:51 Labs: Abnormal Lab Results - Last 24 Hours (Table) 08/12/24 08/12/24 Range/Units 03:51 03:51 WBC 10.87 H (4.50-10.00) X 10*3/uL RBC 2.89 L (4.40-5.60) X 10*6/uL Hgb 9.5 L (13.0-17.0) g/dL Hct 28.7 L (39.6-50.0) % MCV 99.3 H (80.0-97.0) FL MCH 32.9 H (27.0-32.0) pg RDW 15.2 H (11.5-14.5) % Plt Count 679 H (140-440) X 10*3/uL Immature Gran # 0.36 H (0.00-0.04) X 10*3/uL Monocytes # 1.46 H (0.20-1.00) X 10*3/uL Sodium 134 L (135-145) mmol/L Carbon Dioxide 21.4 L (21.6-31.8) mmol/L BUN 8.0 L (9.0-27.0) mg/dL BUN/Creatinine Ratio 11.43 L (12.00-20.00) Ratio Calcium 7.9 L (8.7-10.3) mg/dL Total Bilirubin <0.2 L (0.3-1.2) mg/dL Total Protein 4.8 L (6.2-8.2) g/dL Albumin 2.3 L (3.8-4.9) g/dL Albumin/Globulin Ratio 0.92 L (1.60-3.17) Ratio Microbiology - Last 24 Hours (Table) 08/06/24 18:42 Blood Culture - Final Blood 08/06/24 22:25 Anaerobic Culture - Final Other - Other Anaerobic Gm Negative Bacilli Assessment and Plan (1) Perforated sigmoid colon Current Visit: Yes Status: Acute Code(s): K63.1 - PERFORATION OF INTESTINE (NONTRAUMATIC) SNOMED Code(s): 807947932 (2) Sepsis Current Visit: Yes Status: Acute Code(s): A41.9 - SEPSIS, UNSPECIFIED ORG ANISM SNOMED Code(s): 50290399 (3) Intra-abdominal abscess Current Visit: Yes Status: Acute Code(s): K65.1 - PERITONEAL ABSCESS SNOMED Code(s): 37968670 Plan: 1patient presented hospital with sepsis in this patient noted to have fever tachycardia elevated white count meeting currently for SIRS source is perforated diverticulitis with intra-abdominal abscess status post sigmoid colectomy and diverting colostomy there was concern for some circumferential wall thickening of the bladder but no clear indication of any colovesical fistula reported on the operative report 2-patient abdominal culture has been finalized with strep anaerobe and E. coli sensitive to Zosyn/ceftriaxone 3patient is afebrile white count down to 10K, patient willfinish therapy with oral Ceftin and Flagyl x 10 dayS discussed with the SCRIPT ARTIST for surgical team working on discharge Dictation was produced using [employer] dictation software. please excuse any grammatical, word or spelling errors.
--- NOTE | 2024-08-12 12:59 | P.PN ---
Subjective Progress Note Date: 08/12/24 53-year-old male patient with past medical history significant for hypertension, history of anemia, history of colon polyps who presented to ER with a complaint of abdominal pain. Patient reported that he was having abdominal pain for the last 4 to 5 days, symptom were fluctuating, initially were improving and got worse last night prior to coming to the ED, patient also reported intermittent fever and chills. Patient reported nausea, constipation. Patient denied any sore throat, headache, shortness of breath, chest pain, palpitations, dysuria urgency frequency weakness of numbness of the extremities. Patient had colonoscopy about 8 years ago for rectal bleeding and had 3 polyps removed at that time. Patient had a fever of 100.5 in the ED was tachycardic with heart rate 112, respiratory rate 18, blood pressure 135/88, was saturating 98% on room air. WBCs were elevated 22.0 in the ED, hemoglobin 13.4, platelet 574. Sodium 131, potassium 4.6, chloride 98 CO2 23 BUN 11 creatinine 0.76, liver profile unremarkable. UA was positive for 30 WBCs, small amount of leukocyte Estrace. CT abdomen pelvis showed masslike area of wall thickening of sigmoid colon with free peritoneal fluid compatible with abscess, findings could represent perforated mass versus perforated colitis with abscess formation, circumferential wall thickening up to 10 mm of bladder. Trace ascites. Dilated appendix with mild inflammation. 08/08--patient was seen and examined today. Patient feeling better today. Pain is controlled. Output noted in the ostomy bag. MELITA drain with SS output. Afebrile, vital stable. WBCs 16.5, hemoglobin 9.8, platelet 438. BMP unremarkable. General surgery following, plan for NG tube clamping trial, with clear liquid diet today. 08/09--patient was seen and examined today. Pain is controlled, afebrile, heart rate 80, respiratory rate 18, blood pressure 114/76, saturating 97% on room air. WBCs 15.1, hemoglobin 10.2, platelet 531. BMP unremarkable. Mildly elevated AST 67. Currently on clear liquid diet per general surgery. [place] for pain control. Pathology results pending. On IV Zosyn. ID following. 08/10. Patient seen and examined. Labs done this morning showed WBC 13.59, hemoglobin 10.9, platelet count 644, sodium 133, potassium 4.3, BUN 14.6, creatinine 0.8. Continues to be afebrile. Currently on clear liquid diet, diet advanced to full liquid by surgery 08/11. Patient seen and examined. Diet advanced to soft diet. Denies any abdominal pain. Denies any nausea or vomiting. 08/12. Patient seen examined. Patient is medically stable for discharge. Tolerating regular diet. REVIEW OF SYSTEMS: CONSTITUTIONAL: No fever, no malaise,. CARDIOVASCULAR: No chest pain, no palpitations, no syncope. PULMONARY: No shortness of breath, no cough, GASTROINTESTINAL: No diarrhea, no nausea, no vomiting, no abdominal pain. NEUROLOGICAL: No headaches, no weakness, PHYSICAL EXAMINATION: GENERAL: The patient is alert and oriented x3, not in any acute distress. Well developed, well nourished. HEENT: Pupils are round and equally reacting to light. EOMI. No scleral icterus. No conjunctival pallor. Normocephalic, atraumatic. No pharyngeal erythema. No thyromegaly. CARDIOVASCULAR: S1 and S2 present. No murmurs, rubs, or gallops. PULMONARY: Chest is clear to auscultation, no wheezing or crackles. ABDOMEN: Soft, surgical incision seen no erythema, ostomy seen MUSCULOSKELETAL: No joint swelling or deformity. EXTREMITIES: No cyanosis, clubbing, or pedal edema. NEUROLOGICAL: Gross neurological examination did not reveal any focal deficits. SKIN: No rashes. Assessment and plan Perforated sigmoid colon with abscess: Presented with abdominal pain, nausea, constipation Febrile with tachycardia and leukocytosis on presentation CT abdomen pelvis showed masslike area of wall thickening of sigmoid colon with fiery peritoneal fluid compatible with abscess, concern for perforated mass versus perforated colitis with abscess formation. Status post exploratory laparotomy with sigmoid colon resection with end colostomy and abdominal washout on 08/06 Management per general surgery diet advanced to soft Pain control, antiemetics. Zosyn Blood cultures negative so far, peritoneal fluid culture growing E. coli, beta- hemolytic Streptococcus F. Infectious disease on board, appreciate their recommendation Hypertension: Hold lisinopril, hydrochlorothiazide due to soft blood pressure Labs and medication were reviewed.. Continue same treatment. Continue with symptomatic treatment. Resume home medication. Monitor labs and vitals. DVT and GI prophylaxis. Further recommendations as per clinical course of the patient Dictation was produced using [employer] software. please excuse any grammatical, word or spelling errors. Objective - Vital Signs Vital signs: Vital Signs Temp 97.7 F 08/12/24 07:24 Pulse 65 08/12/24 07:24 Resp 16 08/12/24 07:24 BP 124/78 08/12/24 07:24 Pulse Ox 98 08/12/24 07:24 FiO2 Intake & Output 08/11/24 08/12/24 08/12/24 18:59 06:59 18:59 Output Total 1135 Balance -1135 Output: Drainage 35 Abdomen 35 Urine 1100 Other: Voiding Method Toilet Urinal # Voids 3 # Bowel Movements 1 - Labs CBC & Chem 7: 08/12/24 03:51 08/12/24 03:51 Labs: Abnormal Lab Results - Last 24 Hours (Table) 08/12/24 08/12/24 Range/Units 03:51 03:51 WBC 10.87 H (4.50-10.00) X 10*3/uL RBC 2.89 L (4.40-5.60) X 10*6/uL Hgb 9.5 L (13.0-17.0) g/dL Hct 28.7 L (39.6-50.0) % MCV 99.3 H (80.0-97.0) FL MCH 32.9 H (27.0-32.0) pg RDW 15.2 H (11.5-14.5) % Plt Count 679 H (140-440) X 10*3/uL Immature Gran # 0.36 H (0.00-0.04) X 10*3/uL Monocytes # 1.46 H (0.20-1.00) X 10*3/uL Sodium 134 L (135-145) mmol/L Carbon Dioxide 21.4 L (21.6-31.8) mmol/L BUN 8.0 L (9.0-27.0) mg/dL BUN/Creatinine Ratio 11.43 L (12.00-20.00) Ratio Calcium 7.9 L (8.7-10.3) mg/dL Total Bilirubin <0.2 L (0.3-1.2) mg/dL Total Protein 4.8 L (6.2-8.2) g/dL Albumin 2.3 L (3.8-4.9) g/dL Albumin/Globulin Ratio 0.92 L (1.60-3.17) Ratio Microbiology - Last 24 Hours (Table) 08/06/24 18:42 Blood Culture - Final Blood 08/06/24 22:25 Anaerobic Culture - Final Other - Other Anaerobic Gm Negative Bacilli
== END 2024-08-12 13:33 | disposition home health service (06) | DRG 853 ==
LOC: EC 17:00 → 4SSUR 20:20
PROVIDERS: ADMIT Surgery; ATTEND Surgery
PROC: 0DBN0ZZ Excision of Sigmoid Colon, Open Approach (ICD-10-PCS; principal; 2024-08-06 20:34)
PROC: 0D1M0Z4 Bypass Descending Colon to Cutaneous, Open Approach (ICD-10-PCS; principal; 2024-08-06 20:34)
DX: A41.9 Sepsis, unspecified organism (principal); K65.1 Peritoneal abscess; K57.20 Diverticulitis of large intestine with perforation and abscess without bleeding; I10 Essential (primary) hypertension; B96.20 Unspecified Escherichia coli [E. coli] as the cause of diseases classified elsewhere; K59.00 Constipation, unspecified; R74.01 Elevation of levels of liver transaminase levels; Z79.899 Other long term (current) drug therapy; Z87.891 Personal history of nicotine dependence; Z86.0100 Personal history of colon polyps, unspecified
CPT/HCPCS: 36415; 74177; 80048; 80053; 81001; 82150; 83605; 83690; 83735; 84100; 85025; 85730; 87040; 87070; 87075; 87077; 87086; 87186; 87205; 88307; 96374; 96375; 99285

== ENCOUNTER 2024-10-17 19:13 | Emergency (ER) | payer BC ==
--- NOTE | 2024-10-17 19:38 | ED ---
Abdominal Pain HPI - General Chief Complaint: Abdominal Pain Stated Complaint: Abd Pain Time Seen by Provider: 10/17/24 19:34 Source: patient, family (), RN notes reviewed, old records reviewed Mode of arrival: ambulatory Limitations: no limitations - History of Present Illness Initial Comments: 53-year-old male presented the ER for evaluation of abdominal pain. is aiding in HPI. She reports on 08 06 24 patient was septic due to sigmoid ab scess. He underwent sigmoid colon resection with ostomy placement by Dr. Wood. Patient has followed up with him a couple of weeks ago and does not have another follow-up appointment until January. Patient states yesterday while at work he started to experience a dull 2 out of 10 right sided abdominal discomfort. He states he was able to go to bed and upon waking up pain continued and appeared to be worsening throughout the day and currently describes it as a sharp achy 8 out of 10 abdominal discomfort. Patient has ostomy in place and states he put a new bag on Monday night. He states yesterday he had no output from ostomy which is very unusual. He does admit to output today. He denies any hematochezia or melena. He admits to a normal appetite. He denies any nausea, vomiting, urinary complaints, fevers, chills, night sweats or unintentional weight loss. He has not taken anything for his current symptoms. He denies any headache, dizziness, lightheadedness, chest pain, shortness of breath or peripheral edema. - Related Data Home Medications Medication Instructions Recorded Confirmed Lisinopril-Hctz 20-25 mg 1 tab PO DAILY 09/19/18 08/06/24 [Zestoretic 20-] Ibuprofen [Motrin] 800 mg PO TID PRN 08/06/24 08/06/24 Previous Rx's Medication Instructions Recorded Acetaminophen Tab [Tylenol Tab] 650 mg PO Q4H PRN #30 tablet 08/12/24 HYDROcodone/APAP 5-325MG [[place] 1 tab PO Q6HR PRN 3 Days #12 tab 08/12/24 5-325] cefuroxime axetiL [Ceftin] 500 mg PO BID #20 tab 08/12/24 metroNIDAZOLE [Flagyl] 500 mg PO TID 10 Days #30 tab 08/12/24 Cephalexin [Keflex] 500 mg PO Q6HR #40 cap 10/17/24 Allergies Allergy/AdvReac Type Severity Reaction Status Date / Time No Known Allergies Allergy Verified 10/17/24 19:23 Review of Systems ROS Statement: Those systems with pertinent positive or pertinent negative responses have been documented in the HPI. ROS Other: All systems not noted in ROS Statement are negative. Past Medical History Past Medical History: Hypertension Additional Past Medical History / Comment(s): fx rt ankle,hx anemia,colon polyps History of Any Multi-Drug Resistant Organisms: None Reported Past Surgical History: Orthopedic Surgery Additional Past Surgical History / Comment(s): wisdom teeth removed,dental work Past Anesthesia/Blood Transfusion Reactions: No Reported Reaction Additional Past Anesthesia/Blood Transfusion Reaction / Comment(s): never has had general anesthesia or blood transfusion Past Psychological History: No Psychological Hx Reported Smoking Status: Former smoker Past Alcohol Use History: None Reported Past Drug Use History: None Reported - Past Family History Mother Family Medical History: No Reported History General Exam Limitations: no limitations General appearance: alert, in no apparent distress Respiratory exam: Present: normal lung sounds bilaterally. Absent: respiratory distress, wheezes, rales, rhonchi, stridor Cardiovascular Exam: Present: regular rate, normal rhythm, normal heart sounds. Absent: systolic murmur, diastolic murmur, rubs, gallop, clicks GI/Abdominal exam: Present: soft, tenderness (Right lower quadrant), normal gonzalez l sounds, other (Vertical midline surgical incision appears well-healed with no surrounding erythema, purulent drainage, dehiscence or warmth. Ostomy placed left upper quadrant.) Extremities exam: Present: normal inspection, full ROM, normal capillary refill. Absent: tenderness, pedal edema, joint swelling, calf tenderness Neurological exam: Present: alert, oriented X3, CN II-XII intact Skin exam: Present: warm, dry, intact, normal color. Absent: rash Course Vital Signs 10/17/24 10/17/24 19:21 21:53 Temperature 98.8 F 97.8 F Pulse Rate 96 89 Respiratory 17 18 Rate Blood Pressure 164/111 135/87 O2 Sat by Pulse 98 97 Oximetry Medical Decision Making - Medical Decision Making Was pt. sent in by a medical professional or institution (, PA, SENIOR PAYROLL MANAGER, urgent care, hospital, or snf...) When possible be specific @ -No Did you speak to anyone other than the patient for history (EMS, parent, family, police, friend...)? What history was obtained from this source @ -Significant other, bedside, aiding in HPI and past medical history Did you review nursing and triage notes (agree or disagree)? Why? @ -I reviewed and agree with nursing and triage notes Were old charts reviewed (outside hosp., previous admission, EMS record, old EKG, old radiological studies, urgent care reports/EKG's, snf records)? Report findings @ -Discharge summary from 08-12-24 reviewed. Patient admitted for sepsis with perforated sigmoid colon with abscess. Patient underwent exploratory laparotomy with sigmoid colon resection and end colostomy with abdominal washout with Dr. Wood. Patient discharged on on Ceftin and Flagyl. Differential Diagnosis (chest pain, altered mental status, abdominal pain women, abdominal pain men, vaginal bleeding, weakness, fever, dyspnea, syncope, headache, dizziness, GI bleed, back pain, seizure, CVA, palpatations, mental health, musculoskeletal)? @ -Differential Abdominal Pain Men:Appendicitis, cholecystitis, diverticulosis, ischemic bowel, pancreatitis, hepatitis, UTI, gastroenteritis, AAA, incarcerated hernia, bowel obstruction, constipation, inflammatory bowel, hepatitis, peptic ulcer disease, splenic infarction, perforated viscus, testicular torsion, this is not meant to be an all-inclusive list EKG interpreted by me (3pts min.). @ -As above X-rays interpreted by me (1pt min.). @ -None done CT interpreted by me (1pt min.). @ -CT abdomen pelvis negative for acute intra-abdominal process. No obstructive uropathy or renal calculus. Normal appendix. Left abdominal ostomy. No evidence of parastomal hernia or complication. Colonic diverticulosis. U/S interpreted by me (1pt. min.). @ -None done What testing was considered but not performed or refused? (CT, X-rays, U/S, labs)? Why? @ -None What meds were considered but not given or refused? Why? @ -None Did you discuss the management of the patient with other professionals (professionals i.e. , PA, SENIOR PAYROLL MANAGER, lab, RT, psych nurse, web content & social media manager, account manager employee benefits, teacher, consumer safety officer, case management rn)? Give summary @ -No Was smoking cessation discussed for >3mins.? @ -No Was critical care preformed (if so, how long)? @ -No Were there social determinants of health that impacted care today? How? (Homelessness, low income, unemployed, alcoholism, drug addiction, transportation, low edu. Level, literacy, decrease access to med. care, [facility], rehab)? @ -No Was there de-escalation of care discussed even if they declined (Discuss DNR or withdrawal of care, Hospice)? DNR status @ -No What co-morbidities impacted this encounter? (DM, HTN, Smoking, COPD, CAD, Cancer, CVA, ARF, Chemo, Hep., AIDS, mental health diagnosis, sleep apnea, morbid obesity)? @ -History of sigmoid resection with ostomy in place Was patient admitted / discharged? Hospital course, mention meds given and route, prescriptions, significant lab abnormalities, going to OR and other p ertinent info. @ -Discharge. 53-year-old male presented the ER for evaluation of abdominal pain. Vital signs stable. Laboratory studies remarkable for WBC of 13.8 left shift. Lactic 0.9. Lipase 135. Total bilirubin 1.4 no elevation in AST, ALT or alk phos. Urinalysis with 87 WBCs and large leukocyte esterases this will be sent for culture and patient will be treated for a UTI with Keflex. Given recent surgical intervention and ostomy, CT abdomen pelvis was obtained and negative for acute intra-abdominal/pelvic process. Normal appendix. No bowel obstruction, parastomal hernia or complication. Patient provided with IV fluids and Toradol for symptom control. Upon reevaluation, patient resting comfortably in stretcher no signs of acute distress. Patient reporting improvement of discomfort. Patient and patient's educated on today's findings. Patient is comfortable with discharge at this time. First dose of Keflex in the ER. Advise close follow-up with PCP and general surgery. Strict return parameters discussed. Patient discharged in stable condition. Patient verbally expressed understanding agreement care plan. Case discussed with ED attending, . Undiagnosed new problem with uncertain prognosis? @ -No Drug Therapy requiring intensive monitoring for toxicity (Heparin, Nitro, Insulin, Cardizem)? @ -No Were any procedures done? @ -No Diagnosis/symptom? @ -UTI/abdominal pain Acute, or Chronic, or Acute on Chronic? @ -Acute Uncomplicated (without systemic symptoms) or Complicated (systemic symptoms)? @ -Uncomplicated Side effects of treatment? @ -No Exacerbation, Progression, or Severe Exacerbation? @ -No Poses a threat to life or bodily function? How? (Chest pain, [place], [place], pneumonia, PE, COPD, DKA, ARF, appy, cholecystitis, CVA, Diverticulitis, Homicidal, Suicidal, threat to staff... and all critical care pts) @ -Low at this time - Lab Data Result diagrams: 10/17/24 19:48 10/17/24 19:48 Lab Results 10/17/24 10/17/24 10/17/24 Range/Units 19:48 19:48 19:48 WBC 13.80 H (4.50-10.00) 10*3/uL RBC 4.34 L (4.40-5.60) 10*6/uL Hgb 13.4 (13.0-17.0) g/dL Hct 39.4 L (39.6-50.0) % MCV 90.8 (80.0-97.0) fL MCH 30.9 (27.0-32.0) pg MCHC 34.0 (32.0-37.0) g/dL Plt Count 424 (140-440) 10*3/uL MPV 9.0 L (9.5-12.2) fL Immature Gran % (Auto) 0.2 % Neutrophils % 68.5 % Lymphocytes % 18.7 % Monocytes % 9.9 % Eosinophils % 2.3 % Basophils % 0.4 % Immature Gran # 0.03 (0.00-0.04) 10*3/uL Neutrophils # 9.44 H (1.80-7.70) 10*3/uL Lymphocytes # 2.58 (0.90-5.00) 10*3/uL Monocytes # 1.37 H (0.20-1.00) 10*3/uL Eosinophils # 0.32 (0.04-0.35) 10*3/uL Basophils # 0.06 (0.00-0.10) 10*3/uL Sodium 134 L (137-145) mmol/L Potassium 4.3 (3.5-5.1) mmol/L Chloride 102 (98-107) mmol/L Carbon Dioxide 23 (22-30) mmol/L Anion Gap 9 mmol/L BUN 13 (9-20) mg/dL Creatinine 0.73 (0.66-1.25) mg/dL Est GFR (CKD-EPI)AfAm >90 (>60 ml/min/1.73 sqM) Est GFR (CKD-EPI)NonAf >90 (>60 ml/min/1.73 sqM) Glucose 100 H (74-99) mg/dL Plasma Lactic Acid [place] 0.9 (0.7-2.0) mmol/L Calcium 9.7 (8.4-10.2) mg/dL Total Bilirubin 1.4 H (0.2-1.3) mg/dL AST 27 (17-59) U/L ALT 14 (4-49) U/L Alkaline Phosphatase 70 (38-126) U/L Total Protein 7.7 (6.3-8.2) g/dL Albumin 4.5 (3.5-5.0) g/dL Amylase 42 (30-110) U/L Lipase 135 (23-300) U/L Urine Color Urine Appearance (Clear) Urine pH (5.0-8.0) Ur Specific [place] (1.001-1.035) Urine Protein (Negative) Urine Glucose (UA) (Negative) Urine Ketones (Negative) Urine Blood (Negative) Urine Nitrite (Negative) Urine Bilirubin (Negative) Urine Urobilinogen (<2.0) mg/dL Ur Leukocyte Esterase (Negative) Urine RBC (0-5) /hpf Urine WBC (0-5) /hpf Ur Squamous Epith Cells (0-4) /hpf Urine Bacteria (None) /hpf Urine Mucus (None) /hpf 10/17/24 Range/Units 21:19 WBC (4.50-10.00) 10*3/uL RBC (4.40-5.60) 10*6/uL Hgb (13.0-17.0) g/dL Hct (39.6-50.0) % MCV (80.0-97.0) fL MCH (27.0-32.0) pg MCHC (32.0-37.0) g/dL Plt Count (140-440) 10*3/uL MPV (9.5-12.2) fL Immature Gran % (Auto) % Neutrophils % % Lymphocytes % % Monocytes % % Eosinophils % % Basophils % % Immature Gran # (0.00-0.04) 10*3/uL Neutrophils # (1.80-7.70) 10*3/uL Lymphocytes # (0.90-5.00) 10*3/uL Monocytes # (0.20-1.00) 10*3/uL Eosinophils # (0.04-0.35) 10*3/uL Basophils # (0.00-0.10) 10*3/uL Sodium (137-145) mmol/L Potassium (3.5-5.1) mmol/L Chloride (98-107) mmol/L Carbon Dioxide (22-30) mmol/L Anion Gap mmol/L BUN (9-20) mg/dL Creatinine (0.66-1.25) mg/dL Est GFR (CKD-EPI)AfAm (>60 ml/min/1.73 sqM) Est GFR (CKD-EPI)NonAf (>60 ml/min/1.73 sqM) Glucose (74-99) mg/dL Plasma Lactic Acid [place] (0.7-2.0) mmol/L Calcium (8.4-10.2) mg/dL Total Bilirubin (0.2-1.3) mg/dL AST (17-59) U/L ALT (4-49) U/L Alkaline Phosphatase (38-126) U/L Total Protein (6.3-8.2) g/dL Albumin (3.5-5.0) g/dL Amylase (30-110) U/L Lipase (23-300) U/L Urine Color Yellow Urine Appearance Clear (Clear) Urine pH 6.0 (5.0-8.0) Ur Specific [place] >1.050 H (1.001-1.035) Urine Protein Negative (Negative) Urine Glucose (UA) Negative (Negative) Urine Ketones Negative (Negative) Urine Blood Negative (Negative) Urine Nitrite Positive (Negative) Urine Bilirubin Negative (Negative) Urine Urobilinogen <2.0 (<2.0) mg/dL Ur Leukocyte Esterase Large H (Negative) Urine RBC 5 (0-5) /hpf Urine WBC 87 H (0-5) /hpf Ur Squamous Epith Cells <1 (0-4) /hpf Urine Bacteria Occasional H (None) /hpf Urine Mucus Rare H (None) /hpf - EKG Data -: EKG Interpreted by Me EKG Comments: EKG taken at 20: 09 showing a sinus rhythm. No ST segment elevations or depressions. No T wave inversions. Ventricular rate 84, NV interval 142, QRS duration 89, QT/QTc 365/406 - Radiology Data Radiology results: report reviewed, image reviewed Disposition Clinical Impression: Abdominal pain, UTI (urinary tract infection) Disposition: HOME SELF-CARE Condition: Stable Instructions (If sedation given, give patient instructions): Abdominal Pain (ED) Additional Instructions: Follow-up closely with Dr. Gordillo and Dr. Wood. Take Keflex as prescribed. You may take [id number] ibuprofen and Tylenol for pain control. Return to the ER for any new or worsening concerns. Prescriptions: Cephalexin [Keflex] 500 mg PO Q6HR #40 cap Is patient prescribed a controlled substance at d/c from ED?: No Referrals: Flo Gordillo MD [Primary Care Provider] - 1-2 days Michoacano Wood DO [Medical Doctor] - 1-2 days Time of Disposition: 21:44
[2024-10-17] MEDS: KETOROLAC 15 MG/ML 1 ML VIAL IVP STA (19:51)
[2024-10-17] MEDS: SODIUM CHLORIDE 0.9% 1,000 ML IV ONE (19:53)
[2024-10-17 19:56] LABS: Basophils # (A) 0.06 10*3/uL (0.00-0.10); Basophils % (A) 0.4 %; Eosinophils # (A) 0.32 10*3/uL (0.04-0.35); Eosinophils % (A) 2.3 %; HCT 39.4 % (39.6-50.0); HGB 13.4 g/dL (13.0-17.0); Lymphocytes # (A) 2.58 10*3/uL (0.90-5.00); Lymphocytes % (A) 18.7 %; MCH 30.9 pg (27.0-32.0); MCV 90.8 fL (80.0-97.0); Monocytes # (A) 1.37 10*3/uL (0.20-1.00); Monocytes % (A) 9.9 %; Neutrophils # (A) 9.44 10*3/uL (1.80-7.70); Neutrophils % (A) 68.5 %; Platelet Count 424 10*3/uL (140-440); RBC 4.34 10*6/uL (4.40-5.60); RDW 14.4 % (11.5-14.5)
[2024-10-17 20:11] LABS: ALT 14 U/L (4-49); AST 27 U/L (17-59); African American GFR (CKD) >90 (>60 ml/min/1.73 sqM); Albumin 4.5 g/dL (3.5-5.0); Alkaline Phosphatase 70 U/L (38-126); Amylase 42 U/L (30-110); Anion Gap 9 mmol/L; Blood Urea Nitrogen 13 mg/dL (9-20); Calcium 9.7 mg/dL (8.4-10.2); Carbon Dioxide 23 mmol/L (22-30); Chloride 102 mmol/L (98-107); Glucose 100 mg/dL (74-99); Lipase 135 U/L (23-300); Non-African American GFR(CKD) >90 (>60 ml/min/1.73 sqM); Potassium 4.3 mmol/L (3.5-5.1); Sodium 134 mmol/L (137-145); Total Bilirubin 1.4 mg/dL (0.2-1.3); Total Protein 7.7 g/dL (6.3-8.2)
--- NOTE | 2024-10-17 21:22 | CT ---
EXAMINATION TYPE: CT abdomen pelvis w con DATE OF EXAM: 10/17/2024 8:52 PM COMPARISON: 08/06/2024 CLINICAL INDICATION: Male, 53 years old with history of RLQ abd pain hx colon resection 08/06/24; RLQ a bd pain hx colon resection 08/06/24 TECHNIQUE: Axial CT abdomen pelvis w con;Sagittal and coronal reformats were created on a separate w orkstation. Contrast used:100 ml mL of Isovue 300 with IV Contrast, (none if empty) Oral contrast used: without Oral Contrast (none if empty) CT DLP: 629.4 mGycm, Automated exposure control for dose reduction was used. FINDINGS: LOWER CHEST: Unremarkable ABDOMEN LIVER: Unremarkable GALLBLADDER AND BILE DUCTS: Unremarkable. PANCREAS: Unremarkable. SPLEEN: Unremarkable. ADRENAL GLANDS: Unremarkable. KIDNEYS AND URETERS: No evidence of hydronephrosis or obstructing renal calculus. The ureters are unr emarkable. PELVIS BLADDER: No evidence for wall thickening or mass given limitations of exam. REPRODUCTIVE: Unremarkable. ABDOMEN & PELVIS STOMACH AND BOWEL: Scattered colonic diverticula. Left abdominal ostomy. No evidence of bowel obstruc tion. The appendix is normal. PERITONEUM/RETROPERITONEUM: No evidence of pneumoperitoneum or free fluid. VASCULATURE: No evidence of aortic aneurysm. MUSCULOSKELETAL: No acute osseous abnormalities LYMPH NODES: No gross evidence for lymphadenopathy. SOFT TISSUE/ABDOMINAL WALL: Postsurgical changes anterior abdominal wall. IMPRESSION: 1. No evidence for acute abdominal process. No obstructive uropathy or renal calculus. The appendix is normal. 2. Left abdominal ostomy. No evidence for parastomal hernia or complication. 3. Colonic diverticulosis. [facility], , 10/17/2024 9:20 PM
[2024-10-17 21:28] LABS: Appearance,Urine Clear (Clear); Bacteria,Urine Occasional /hpf; Bilirubin,Urine Negative (Negative); Blood,Urine Negative (Negative); Color,Urine Yellow; Glucose,Urine (UA) Negative (Negative); Ketones,Urine Negative (Negative); Leukocyte Esterase,Urine Large (Negative); Mucus,Urine Rare /hpf; Nitrite,Urine Positive (Negative); Protein,Urine Negative (Negative); RBC,Urine 5 /hpf (0-5); Specific Gravity,Urine >1.050 (1.001-1.035); Squamous Epithelial Cell,Urine <1 /hpf (0-4); Urobilinogen,Urine <2.0 mg/dL (<2.0); WBC,Urine 87 /hpf (0-5)
[2024-10-17] MEDS: CEPHALEXIN 500 MG CAP PO STA (21:52)
[2024-10-17 21:56] VITALS: BP 135/87; PULSE 89; RESP 18; TEMP 97.8
== END 2024-10-17 22:02 | disposition home or self-care (01) ==
LOC: EC 19:13
DX: R10.31 Right lower quadrant pain (principal); N39.0 Urinary tract infection, site not specified; Z86.0100 Personal history of colon polyps, unspecified; Z87.891 Personal history of nicotine dependence
CPT/HCPCS: 36415; 93005; 80053; 82150; 83605; 83690; 85025; 81001; 87086; 74177; 99285; 96374; 96361; J1885; Q9967